=== PATIENT | female | born 1975 | race American Indian/Alaskan Native ===

== ENCOUNTER 2017-08-01 16:40 | Inpatient (IN) | payer OTHER ==
[~2017-08-01 16:40] MED LIST: ACETADOTE IV ONE; D5W IV ONE
--- NOTE | 2017-08-01 18:22 | Emergency Department Report ---
ED Psych HPI - General Chief Complaint: Overdose Stated Complaint: POSSIBLE OD Time Seen by Provider: 08/01/17 17:17 Source: EMS Mode of arrival: Stretcher Limitations: Altered Mental Status - History of Present Illness Initial Comments: This is a 42-year-old female who apparently was trying to kill herself with carbon monoxide poisoning by remaining in her car in the garage the car engine turned on and she also took an entire bottle of Flexeril. We don't know at this time, any pills were in the actual bottle. Apparently she was on the phone with a friend when she was doing all of this and EMS was activated. EMS states that she was responsive on scene. The time of this examination patient is quite obtunded. She does have spontaneous respirations though. [facility] [employer] was also contacted. We have labs pending at this time. The patient does not arouse to voice or tactile stimuli. In review of some of her past records, I do not see a previous suicide attempt. MD Complaint: other (suicidal attempt) -: Sudden, hour(s) (2) Associated Psychiatric Symptoms: suicidal ideation History of same: No - Related Data Home Medications Medication Instructions Recorded Confirmed Last Taken Albuterol Sulfate [Ventolin HFA] 2 puff IH Q4H PRN 15 05/27/15 Unknown Previous Rx's Medication Instructions Recorded Last Taken Type Acetaminophen/Codeine [Tylenol #3] 1 tab PO Q6H PRN #15 tab 05/27/15 Unknown Rx Cyclobenzaprine [Flexeril 10 MG 10 mg PO TID PRN #12 tablet 05/27/15 Unknown Rx TAB] Allergies Allergy/AdvReac Type Severity Reaction Status Date / Time No Known Allergies Allergy Unverified 05/17/14 10:06 ED Review of Systems ROS: Stated complaint: POSSIBLE OD Other details as noted in HPI Comment: Unobtainable due to pts medical conditions ED Past Medical Hx - Past Medical History Previous Medical History?: Yes Hx Asthma: Yes Additional medical history: FIBROIDS - Surgical History Past Surgical History?: Yes Additional Surgical History: TONSILLECTOMY - Social History Smoking Status: Unknown if ever smoked - Medications Home Medications: Home Medications Medication Instructions Recorded Confirmed Last Taken Type Acetaminophen/Codeine [Tylenol #3] 1 tab PO Q6H PRN #15 tab 05/27/15 Unknown Rx Albuterol Sulfate [Ventolin HFA] 2 puff IH Q4H PRN 05/27/15 05/27/15 Unknown History Cyclobenzaprine [Flexeril 10 MG 10 mg PO TID PRN #12 tablet 05/27/15 Unknown Rx TAB] ED Physical Exam - General Limitations: Altered Mental Status General appearance: lethargic - Head Head exam: Present: atraumatic, normocephalic - Eye Eye exam: Present: normal appearance, PERRL - ENT ENT exam: Present: normal exam - Neck Neck exam: Present: normal inspection - Respiratory Respiratory exam: Present: respiratory distress (mild) - Cardiovascular Cardiovascular Exam: Present: regular rate, normal rhythm, normal heart sounds - GI/Abdominal GI/Abdominal exam: Present: soft, normal bowel sounds. Absent: distended, tenderness, guarding, rebound, rigid - Extremities Exam Extremities exam: Present: normal inspection - Back Exam Back exam: Present: normal inspection - Skin Skin exam: Present: warm, dry, intact ED Course Vital Signs 08/01/17 08/01/17 16:49 18:02 Temperature 98.6 F Pulse Rate 144 H Respiratory 10 L 10 L Rate Blood Pressure 136/83 O2 Sat by Pulse 97 97 Oximetry - Reevaluation(s) Reevaluation #1: 08/01/17 18:27 Post control recommends getting an ABG as well. We will go ahead and do that. The patient will need to be admitted or transferred depending upon the lab findings. They are pending. 08/01/17 18:42 I discussed the case with Dr. Coon. At this time we will go ahead and admit the patient for Flexeril overdose. ED Medical Decision Making - Lab Data Result diagrams: 08/01/17 17:06 Critical care attestation.: If time is entered above; I have spent that time in minutes in the direct care of this critically ill patient, excluding procedure time. ED Disposition Clinical Impression: Overdose Qualifiers: Encounter type: initial encounter Injury intent: intentional self-harm Qualified Code(s): T50.902A - Poisoning by unspecified drugs, medicaments and biological substances, intentional self-harm, initial encounter Disposition: OP ADMIT IP TO THIS HOSP Is pt being admited?: Yes Does the pt Need Aspirin: No Condition: Stable Referrals: PRIMARY CARE,MD [Primary Care Provider] - 3-5 Days
[2017-08-01 18:37] LABS: Bilirubin,Urine NEG (Negative); Blood,Urine NEG (Negative); Color,Urine Yellow (Yellow); Mucus,Urine 1+ /HPF; Protein,Urine <15 mg/dL mg/dL (Negative)
[2017-08-01] MEDS ORDERED: ROCEPHIN/NS 1 GM/50 ML 1 GM/50 ML BAG IV ONE (18:43)
[2017-08-01 18:50] LABS: Amphetamine Screen,Urine PRESUMPTIVE NEGATIVE; Benzodiazepines Screen,Urine PRESUMPTIVE NEGATIVE; Cannabinoid Screen,Urine PRESUMPTIVE NEGATIVE; Cocaine Screen,Urine PRESUMPTIVE NEGATIVE; Methadone Screen,Urine PRESUMPTIVE NEGATIVE; Opiate Screen,Urine PRESUMPTIVE NEGATIVE
[2017-08-01 19:05] LABS: BUN/Creatinine Ratio TNR; Blood Urea Nitrogen TNR mg/dL (7-17); Calcium TNR mg/dL (8.4-10.2); Hemolysis Index TNR
[2017-08-01 19:12] LABS: Hematocrit 33.5 % (30.3-42.9); Hemoglobin 10.3 gm/dl (10.1-14.3); Mean Corpuscular HGB Conc 31 % (30-34); Mean Corpuscular Volume 76 fl (79-97); Platelet Count 324 K/mm3 (140-440); Red Blood Count 4.39 M/mm3 (3.65-5.03)
[2017-08-01 19:13] LABS: Mean Corpuscular Hemoglobin 23 pg (28-32); Red Cell Distribution Width 28.1 % (13.2-15.2)
[2017-08-01] MEDS ORDERED: cefTRIAXone 1 GM in NACL 0.9% 20 ML IV ONE (19:30)
[2017-08-01 19:48] LABS: Band Neutrophils # (Manual) 0.1 K/mm3; Basophils % (Manual) 0 % (0.0-1.8); Eosinophils % (Manual) 0 % (0.0-4.3); Total Cells Counted 100
[2017-08-01 19:51] LABS: Ovalocytes 1+; Poikilocytosis Few
[2017-08-01 19:52] LABS: Hypochromasia 1+; Platelet Estimate Consistent w Auto
[2017-08-01 19:57] LABS: BUN/Creatinine Ratio 13; Blood Urea Nitrogen 9 mg/dL (7-17); Calcium 8.6 mg/dL (8.4-10.2); Hemolysis Index 8
--- NOTE | 2017-08-01 20:57 | XRay Report ---
FINAL REPORT EXAM: XR ABDOMEN 1V AP HISTORY: NGT placement TECHNIQUE: Supine views of the abdomen PRIORS: None. FINDINGS: Nasogastric tube tip terminates in the proximal stomach. The side-port is in the distal esophagus and can be advanced 4 cm. The bowel gas pattern is nonspecific. No free air is identified. Soft tissues have no evidence for mass shadows or calcifications. The bony structures are intact. IMPRESSION: Satisfactory nasogastric tube placement. The side-port is in the distal esophagus and can be advanced 4 cm into the stomach. Nonspecific, nonobstructive bowel gas pattern with no acute process noted.
[2017-08-01 22:43] LABS: Alanine Aminotransferase 8 units/L (7-56)
[2017-08-01] MEDS ORDERED: ACETADOTE IV ONE ×2 (23:10→23:45)
[2017-08-01] MEDS ORDERED: D5W IV ONE ×2 (23:10→23:45)
--- NOTE | 2017-08-01 23:55 | History and Physical Report ---
History of Present Illness Date of examination: 08/01/17 Date of admission: 08/01/17 18:45 Chief complaint: CC:Overdose on Flexeril 10 mg tablets History of present illness: History of Present Illness This is a 42-year-old female who apparently was trying to kill herself with carbon monoxide poisoning by remaining in her car in the garage the car engine turned on and she also took an entire bottle of Flexeril. We don't know at this time, any pills were in the actual bottle. Apparently she was on the phone with a friend when she was doing all of this and EMS was activated. EMS states that she was responsive on scene. The time of this examination patient is quite obtunded. She does have spontaneous respirations though. [email or web address] was also contacted. We have labs pending at this time. The patient does not arouse to voice or tactile stimuli. In review of some of her past records, I do not see a previous suicide attempt. - Past Medical History Previous Medical History?: Yes Hx Asthma: Yes Additional medical history: FIBROIDS - Surgical History Past Surgical History?: Yes Additional Surgical History: TONSILLECTOMY - Social History Smoking Status: Unknown if ever smoked - Medications Home Medications: Home Medications Medication Instructions Recorded Confirmed Last Taken Type Acetaminophen/Codeine [Tylenol #3] 1 tab PO Q6H PRN #15 tab 05/27/15 Unknown Rx Albuterol Sulfate [Ventolin HFA] 2 puff IH Q4H PRN 05/27/15 05/27/15 Unknown History Cyclobenzaprine [Flexeril 10 MG 10 mg PO TID PRN #12 tablet 05/27/15 Unknown Rx TAB] Review of Systems ROS: Stated complaint: POSSIBLE OD Other details as noted in HPI Comment: Unobtainable due to pts medical conditions Medications and Allergies Allergies Allergy/AdvReac Type Severity Reaction Status Date / Time No Known Allergies Allergy Unverified 05/17/14 10:06 Home Medications Medication Instructions Recorded Confirmed Last Taken Type Acetaminophen/Codeine [Tylenol #3] 1 tab PO Q6H PRN #15 tab 05/27/15 Unknown Rx Albuterol Sulfate [Ventolin HFA] 2 puff IH Q4H PRN 15 05/27/15 Unknown History Cyclobenzaprine [Flexeril 10 MG 10 mg PO TID PRN #12 tablet 05/27/15 Unknown Rx TAB] Active Meds: Active Medications Acetylcysteine 9,525 mg/ (Dextrose) 1,047.625 mls @ 62.5 mls/hr IV ONCE ONE Stop: 08/02/17 21:01 Acetylcysteine 14,290 mg/ (Dextrose) 200 mls @ 200 mls/hr IV ONCE.ED ONE Stop: 08/02/17 00:44 Exam - Physical Exam Narrative exam: Lying in bed unresponsive - Constitutional Vitals: Temp Pulse Resp BP Pulse Ox 97.8 F 88 15 145/104 100 08/01/17 23:20 08/01/17 23:30 08/01/17 23:30 08/01/17 23:30 08/01/17 23:30 General appearance: Present: no acute distress, disheveled - EENT Eyes: Present: PERRL ENT: clear oral mucosa - Neck Neck: Present: supple, normal ROM - Respiratory Respiratory effort: normal Respiratory: bilateral: CTA - Cardiovascular Heart rate: 78 Rhythm: regular Heart Sounds: Present: S1 & S2. Absent: rub, click - Extremities Extremities: no ischemia, pulses intact, pulses symmetrical, No edema Peripheral Pulses: within normal limits - Abdominal General gastrointestinal: Present: soft, non-tender, non-distended, normal bowel sounds Female genitourinary: Present: normal - Integumentary Integumentary: Present: clear, warm, dry - Musculoskeletal Musculoskeletal: generalized weakness - Psychiatric Psychiatric: depressed, other (Decreased responsiveness) - Neurologic Neurologic: moves all extremities - Allied Health Allied health notes reviewed: nursing, case management Results - Labs CBC & Chem 7: 08/01/17 18:48 08/02/17 01:05 Labs: Laboratory Last Values WBC 5.2 K/mm3 (4.5-11.0) 08/01/17 18:48 RBC 4.39 M/mm3 (3.65-5.03) 08/01/17 18:48 Hgb 10.3 gm/dl (10.1-14.3) 08/01/17 18:48 Hct 33.5 % (30.3-42.9) 08/01/17 18:48 MCV 76 fl (79-97) L 08/01/17 18:48 MCH 23 pg (28-32) L 08/01/17 18:48 MCHC 31 % (30-34) 08/01/17 18:48 RDW 28.1 % (13.2-15.2) H 18 18:48 Plt Count 324 K/mm3 (140-440) 18 18:48 Lymph % (Auto) [employer] [id number] 18:48 [place] % (Auto) [employer] Inspector 18 18:48 Eos % (Auto) [employer] Inspector 18 18:48 Baso % (Auto) [employer] Inspector 18 18:48 Lymph # [employer] Inspector 18 18:48 [facility] # [employer] Inspector 18 18:48 Eos # [employer] Inspector 18 18:48 Baso # [employer] Inspector 08/01/17 18:48 Add Manual Diff Complete 08/01/17 18:48 Total Counted 100 18 18:48 Seg Neutrophils % [employer] Inspector 18 18:48 Seg Neuts % (Manual) 68.0 % (40.0-70.0) 08/01/17 18:48 Band Neutrophils % 1.0 % 08/01/17 18:48 Lymphocytes % (Manual) 22.0 % (13.4-35.0) 0218 18:48 Reactive Lymphs % (Man) 0 % 08/01/17 18:48 Monocytes % (Manual) 9.0 % (0.0-7.3) H 18 18:48 Eosinophils % (Manual) 0 % (0.0-4.3) 18 18:48 Basophils % (Manual) 0 % (0.0-1.8) 08/01/17 18:48 Metamyelocytes % 0 % 08/01/17 18:48 Myelocytes % 0 % 08/01/17 18:48 Promyelocytes % 0 % 08/01/17 18:48 Blast Cells % 0 % 08/01/17 18:48 Nucleated RBC % Not Reportable 08/01/17 18:48 Seg Neutrophils # [employer] Inspector 08/01/17 18:48 Seg Neutrophils # Man 3.5 K/mm3 (1.8-7.7) 18 18:48 Band Neutrophils # 0.1 K/mm3 08/01/17 18:48 Lymphocytes # (Manual) 1.1 K/mm3 (1.2-5.4) L 02/12/18 18:48 Abs React Lymphs (Man) 0.0 K/mm3 08/01/17 18:48 Monocytes # (Manual) 0.5 K/mm3 (0.0-0.8) 08/01/17 18:48 Eosinophils # (Manual) 0.0 K/mm3 (0.0-0.4) 08/01/17 18:48 Basophils # (Manual) 0.0 K/mm3 (0.0-0.1) 08/01/17 18:48 Metamyelocytes # 0.0 K/mm3 08/01/17 18:48 Myelocytes # 0.0 K/mm3 08/01/17 18:48 Promyelocytes # 0.0 K/mm3 08/01/17 18:48 Blast Cells # 0.0 K/mm3 08/01/17 18:48 WBC Morphology Not Reportable 08/01/17 18:48 Hypersegmented Neuts Not Reportable 08/01/17 18:48 Hyposegmented Neuts Not Reportable 08/01/17 18:48 Hypogranular Neuts Not Reportable 08/01/17 18:48 Smudge Cells Not Reportable 08/01/17 18:48 Toxic Granulation Not Reportable 08/01/17 18:48 Toxic Vacuolation Not Reportable 08/01/17 18:48 Dohle Bodies Not Reportable 08/01/17 18:48 Pelger-Huet Anomaly Not Reportable 08/01/17 18:48 Aron Rods Not Reportable 08/01/17 18:48 Platelet Estimate Consistent w auto 08/01/17 18:48 Clumped Platelets Not Reportable 08/01/17 18:48 Plt Clumps, EDTA Not Reportable 08/01/17 18:48 Large Platelets Not Reportable 08/01/17 18:48 Giant Platelets Not Reportable 08/01/17 18:48 Platelet Satelliting Not Reportable 08/01/17 18:48 Plt Morphology Comment Not Reportable 08/01/17 18:48 RBC Morphology Not Reportable 08/01/17 18:48 Dimorphic RBCs Not Reportable 08/01/17 18:48 Polychromasia Not Reportable 08/01/17 18:48 Hypochromasia 1+ 08/01/17 18:48 Poikilocytosis Few 08/01/17 18:48 Anisocytosis Not Reportable 08/01/17 18:48 Microcytosis 1+ 08/01/17 18:48 Macrocytosis Not Reportable 08/01/17 18:48 Spherocytes Not Reportable 08/01/17 18:48 Pappenheimer Bodies Not Reportable 08/01/17 18:48 Sickle Cells Not Reportable 08/01/17 18:48 Target Cells Not Reportable 08/01/17 18:48 Tear Drop Cells Not Reportable 08/01/17 18:48 Ovalocytes 1+ 08/01/17 18:48 Helmet Cells Not Reportable 08/01/17 18:48 Duenas-Montara Bodies Not Reportable 08/01/17 18:48 Venus Rings Not Reportable 08/01/17 18:48 Nini Cells Not Reportable 08/01/17 18:48 Bite Cells Not Reportable 08/01/17 18:48 Crenated Cell Not Reportable 08/01/17 18:48 Elliptocytes Not Reportable 08/01/17 18:48 Acanthocytes (Spur) Not Reportable 08/01/17 18:48 Rouleaux Not Reportable 08/01/17 18:48 Hemoglobin C Crystals Not Reportable 08/01/17 18:48 Schistocytes Not Reportable 08/01/17 18:48 Malaria parasites Not Reportable 08/01/17 18:48 Azael Bodies Not Reportable 08/01/17 18:48 Hem Pathologist Commnt No 08/01/17 18:48 POC ABG pH 7.378 (7.35-7.45) 08/01/17 19:19 POC ABG pCO2 46.5 (35-45) H 08/01/17 19:19 POC ABG pO2 480 (80-105) H 08/01/17 19:19 POC ABG HCO3 27.4 08/01/17 19:19 POC ABG Total CO2 29 08/01/17 19:19 POC ABG O2 Sat 100 08/01/17 19:19 POC ABG Base Excess 2 08/01/17 19:19 Carboxyhemoglobin 3.3 08/01/17 21:52 FiO2 98 % 08/01/17 19:19 Sodium 140 mmol/L (137-145) 08/01/17 19:28 Potassium 4.4 mmol/L (3.6-5.0) 08/01/17 19:28 Chloride 101.9 mmol/L (98-107) 08/01/17 19:28 Carbon Dioxide 23 mmol/L (22-30) 08/01/17 19:28 Anion Gap 20 mmol/L 08/01/17 19:28 BUN 9 mg/dL (7-17) 08/01/17 19:28 Creatinine 0.7 mg/dL (0.7-1.2) 08/01/17 19:28 Estimated GFR > 60 ml/min 08/01/17 19:28 BUN/Creatinine Ratio 13 % 08/01/17 19:28 Glucose 84 mg/dL (65-100) 08/01/17 19:28 Calcium 8.6 mg/dL (8.4-10.2) 08/01/17 19:28 AST 17 units/L (5-40) 08/01/17 21:52 ALT 8 units/L (7-56) 08/01/17 21:52 Total Creatine Kinase 174 units/L (30-135) H 08/01/17 21:52 HCG, Qual Negative (Negative) 08/01/17 Unknown Urine Color Yellow (Yellow) 08/01/17 17:50 Urine Turbidity Clear (Clear) 08/01/17 17:50 Urine pH 6.0 (5.0-7.0) 08/01/17 17:50 Ur Specific [place] 1.014 (1.003-1.030) 08/01/17 17:50 Urine Protein <15 mg/dl mg/dL (Negative) 08/01/17 17:50 Urine Glucose (UA) Neg mg/dL (Negative) 08/01/17 17:50 Urine Ketones Tr mg/dL (Negative) 08/01/17 17:50 Urine Blood Neg (Negative) 08/01/17 17:50 Urine Nitrite Neg (Negative) 08/01/17 17:50 Urine Bilirubin Neg (Negative) 08/01/17 17:50 Urine Urobilinogen 4.0 mg/dL (<2.0) 08/01/17 17:50 Ur Leukocyte Esterase Neg (Negative) 08/01/17 17:50 Urine WBC (Auto) 1.0 /HPF (0.0-6.0) 08/01/17 17:50 Urine RBC (Auto) 1.0 /HPF (0.0-6.0) 08/01/17 17:50 U Epithel Cells (Auto) < 1.0 /HPF (0-13.0) 08/01/17 17:50 Urine Mucus 1+ /HPF 08/01/17 17:50 Salicylates < 0.3 mg/dL (2.8-20.0) L 08/01/17 17:00 Urine Opiates Screen Presumptive negative 08/01/17 17:50 Urine Methadone Screen Presumptive negative 08/01/17 17:50 Acetaminophen < 15.0 ug/mL (10.0-30.0) 08/01/17 21:52 Ur Barbiturates Screen Presumptive negative 08/01/17 17:50 Ur Phencyclidine Scrn Presumptive negative 08/01/17 17:50 Ur Amphetamines Screen Presumptive negative 08/01/17 17:50 U Benzodiazepines Scrn Presumptive negative 08/01/17 17:50 Urine Cocaine Screen Presumptive negative 08/01/17 17:50 U Marijuana (THC) Screen Presumptive negative 08/01/17 17:50 Drugs of Abuse Note Disclamer 08/01/17 17:50 Plasma/Serum Alcohol < 0.01 % (0-0.07) 08/01/17 17:00 Short CBC 08/01/17 Range/Units 18:48 WBC 5.2 (4.5-11.0) K/mm3 Hgb 10.3 (10.1-14.3) gm/dl Hct 33.5 (30.3-42.9) % Plt Count 324 (140-440) K/mm3 BMP 08/01/17 08/01/17 08/01/17 17:00 17:06 19:28 Sodium TNR 140 Potassium TNR 4.4 Chloride TNR 101.9 Carbon Dioxide TNR 25 23 BUN TNR 9 Creatinine TNR 0.7 Glucose TNR 84 Calcium TNR 8.6 08/02/17 01:05 Sodium 139 Potassium 4.0 Chloride 99.7 Carbon Dioxide 26 BUN 8 Creatinine 0.6 L Glucose 102 H Calcium 8.4 Cardiac Enzymes 08/01/17 Range/Units 21:52 Total Creatine Kinase 174 H (30-135) units/L Liver Function 08/01/17 08/02/17 Range/Units 21:52 01:05 Total Bilirubin 0.20 (0.1-1.2) mg/dL AST 17 10 (5-40) units/L ALT 8 7 (7-56) units/L Alkaline Phosphatase 68 (35-129) units/L Albumin 3.7 L (3.9-5) g/dL Urine 08/01/17 Range/Units 17:50 Urine Color Yellow (Yellow) Urine pH 6.0 (5.0-7.0) Ur Specific [place] 1.014 (1.003-1.030) Urine Protein <15 mg/dl (Negative) mg/dL Urine Glucose (UA) Neg (Negative) mg/dL - Imaging and Cardiology Abdominal x-ray: report reviewed Assessment and Plan Assessment and plan: The high probability of a clinically significant, sudden or life threatening deterioration of the [Pulmonary, cadiac, renal] system(s) required my full and direct attention, intervention and personal management. The aggregate critical care time was [32] minutes. This time is in addition to time spent performing reported procedures but includes the following: [x] Data Review and interpretation [x] Patient assessment and monitoring of vital signs [x] Documentation [x] Medication orders and management Advance Directives: Yes (Full code) VTE prophylaxis?: Chemical Plan of care discussed with patient/family: Yes - Patient Problems (1) Overdose Current Visit: Yes Status: Acute Qualifiers: Encounter type: initial encounter Injury intent: intentional self-harm Qualified Code(s): T50.902A - Poisoning by unspecified drugs, medicaments and biological substances, intentional self-harm, initial encounter Plan to address problem: IV Fluids for diuresis.No specific antidote. Airway protection----Intubate if necessary No respiratory suppression (2) Asthma Current Visit: Yes Status: Inactive Plan to address problem: Proventil nebs q3/6 prn (3) Depression Current Visit: Yes Status: Chronic Qualifiers: Major depression episode severity: severe Plan to address problem: consult (4) DVT prophylaxis Current Visit: Yes Status: Acute Plan to address problem: On Lovenox
[2017-08-02] MEDS ORDERED: TYLENOL PO PRN (00:22)
[2017-08-02] MEDS ORDERED: MILK OF MAGNESIA PO PRN (00:22)
[2017-08-02] MEDS ORDERED: DULCOLAX PR PRN (00:22)
[2017-08-02] MEDS ORDERED: ZOFRAN IV PRN (00:22)
[2017-08-02 01:42] LABS: Alanine Aminotransferase 7 units/L (7-56); Albumin 3.7 g/dL (3.9-5); BUN/Creatinine Ratio 13; Blood Urea Nitrogen 8 mg/dL (7-17); Calcium 8.4 mg/dL (8.4-10.2); Hemolysis Index 0
[2017-08-02] MEDS: PEPCID IV SCH ×3 (03:40→22:27)
[2017-08-02] MEDS: D5NS 1,000 ML IV SCH (03:41)
[2017-08-02] MEDS ORDERED: D5W IV ONE (04:16)
[2017-08-02] MEDS ORDERED: ACETADOTE IV ONE (04:16)
[2017-08-02] MEDS ORDERED: D5W IV SCH (04:30)
[2017-08-02] MEDS ORDERED: ACETADOTE IV SCH (04:30)
--- NOTE | 2017-08-02 09:50 | Progress Note ---
Assessment and Plan The high probability of a clinically significant, sudden or life threatening deterioration of the [Pulmonary, cadiac, renal] system(s) required my full and direct attention, intervention and personal management. The aggregate critical care time was [32] minutes. This time is in addition to time spent performing reported procedures but includes the following: [x] Data Review and interpretation [x] Patient assessment and monitoring of vital signs [x] Documentation [x] Medication orders and management - Patient Problems (1) Overdose Current Visit: Yes Status: Acute Qualifiers: Encounter type: initial encounter Injury intent: intentional self-harm Qualified Code(s): T50.902A - Poisoning by unspecified drugs, medicaments and biological substances, intentional self-harm, initial encounter Plan to address problem: IV Fluids for diuresis.No specific antidote. Airway protection----Intubate if necessary No respiratory suppression (2) Asthma Current Visit: Yes Status: Inactive Plan to address problem: Proventil nebs q3/6 prn (3) Depression Current Visit: Yes Status: Chronic Qualifiers: Major depression episode severity: severe Plan to address problem: consult (4) DVT prophylaxis Current Visit: Yes Status: Acute Plan to address problem: On Lovenox Subjective Date of service: 08/02/17 Principal diagnosis: Flexeril overdose Interval history: More alert and oriented Objective - Exam Narrative Exam: Lying in bed unresponsive - Constitutional Vitals: Vital Signs - 12hr 08/01/17 08/01/17 08/01/17 22:00 22:30 23:00 Temperature Pulse Rate 87 85 81 Respiratory 13 13 13 Rate Blood Pressure 163/106 156/106 142/100 O2 Sat by Pulse 100 100 100 Oximetry 08/01/17 08/01/17 08/01/17 23:20 23:28 23:30 Temperature 97.8 F Pulse Rate 79 88 Respiratory 14 15 Rate Blood Pressure 143/94 145/104 O2 Sat by Pulse 100 100 Oximetry 08/01/17 08/02/17 08/02/17 23:44 00:00 00:30 Temperature Pulse Rate 77 77 81 Respiratory 14 14 14 Rate Blood Pressure 160/91 148/93 151/102 O2 Sat by Pulse 100 100 100 Oximetry 08/02/17 08/02/17 08/02/17 01:00 01:30 02:00 Temperature Pulse Rate 82 95 H 94 H Respiratory 14 20 21 Rate Blood Pressure 149/102 155/101 148/92 O2 Sat by Pulse 100 100 100 Oximetry 08/02/17 08/02/17 08/02/17 02:30 03:00 03:30 Temperature Pulse Rate 97 H 94 H 88 Respiratory 19 18 14 Rate Blood Pressure 141/99 133/98 151/94 O2 Sat by Pulse 100 100 100 Oximetry 08/02/17 08/02/17 08/02/17 04:00 04:30 05:00 Temperature Pulse Rate 85 85 80 Respiratory 15 12 14 Rate Blood Pressure 132/86 147/91 140/92 O2 Sat by Pulse 100 99 100 Oximetry 08/02/17 08/02/17 08/02/17 05:30 06:00 06:30 Temperature Pulse Rate 80 78 79 Respiratory 12 10 L 14 Rate Blood Pressure 140/92 148/90 145/90 O2 Sat by Pulse 100 100 100 Oximetry 08/02/17 08/02/17 08/02/17 07:00 07:30 08:00 Temperature Pulse Rate 84 84 82 Respiratory 12 13 13 Rate Blood Pressure 149/89 148/87 148/87 O2 Sat by Pulse 100 100 100 Oximetry 08/02/17 08:30 Temperature Pulse Rate 81 Respiratory 13 Rate Blood Pressure 155/93 O2 Sat by Pulse 100 Oximetry General appearance: Present: no acute distress, well-nourished - EENT Eyes: PERRL, EOM intact ENT: hearing intact, clear oral mucosa Ears: bilateral: normal - Neck Neck: supple, normal ROM - Respiratory Respiratory effort: normal Respiratory: bilateral: CTA - Breasts Breasts: normal - Cardiovascular Rhythm: regular Heart Sounds: Present: S1 & S2. Absent: gallop, rub Extremities: pulses intact, No edema, normal color, Full ROM - Gastrointestinal General gastrointestinal: Present: soft, non-tender, non-distended, normal bowel sounds - Genitourinary Female genitourinary: normal - Integumentary Integumentary: clear, warm, dry - Musculoskeletal Musculoskeletal: 1, strength equal bilaterally - Neurologic Neurologic: moves all extremities - Psychiatric Psychiatric: memory intact, appropriate mood/affect, intact judgment & insight - Labs CBC & Chem 7: 08/03/17 04:00 08/03/17 05:45 Labs: Abnormal lab results 08/01/17 08/01/17 08/01/17 Range/Units 17:00 18:48 19:19 MCV 76 L (79-97) fl MCH 23 L (28-32) pg RDW 28.1 H (13.2-15.2) % Monocytes % (Manual) 9.0 H (0.0-7.3) % Lymphocytes # (Manual) 1.1 L (1.2-5.4) K/mm3 POC ABG pCO2 46.5 H (35-45) POC ABG pO2 480 H (80-105) Creatinine (0.7-1.2) mg/dL Glucose (65-100) mg/dL Total Creatine Kinase (30-135) units/L Albumin (3.9-5) g/dL Salicylates < 0.3 L (2.8-20.0) mg/dL 08/01/17 08/02/17 Range/Units 21:52 01:05 MCV (79-97) fl MCH (28-32) pg RDW (13.2-15.2) % Monocytes % (Manual) (0.0-7.3) % Lymphocytes # (Manual) (1.2-5.4) K/mm3 POC ABG pCO2 (35-45) POC ABG pO2 (80-105) Creatinine 0.6 L (0.7-1.2) mg/dL Glucose 102 H (65-100) mg/dL Total Creatine Kinase 174 H (30-135) units/L Albumin 3.7 L (3.9-5) g/dL Salicylates (2.8-20.0) mg/dL
--- NOTE | 2017-08-02 14:58 | Progress Note ---
Assessment and Plan The high probability of a clinically significant, sudden or life threatening deterioration of the [Pulmonary, cadiac, renal] system(s) required my full and direct attention, intervention and personal management. The aggregate critical care time was [32] minutes. This time is in addition to time spent performing reported procedures but includes the following: [x] Data Review and interpretation [x] Patient assessment and monitoring of vital signs [x] Documentation [x] Medication orders and management - Patient Problems (1) Overdose Current Visit: Yes Status: Acute Qualifiers: Encounter type: initial encounter Injury intent: intentional self-harm Qualified Code(s): T50.902A - Poisoning by unspecified drugs, medicaments and biological substances, intentional self-harm, initial encounter Plan to address problem: IV Fluids for diuresis.No specific antidote. Airway protection----Intubate if necessary No respiratory suppression (2) Asthma Current Visit: Yes Status: Inactive Plan to address problem: Proventil nebs q3/6 prn (3) Depression Current Visit: Yes Status: Chronic Qualifiers: Major depression episode severity: severe Plan to address problem: MH consult (4) DVT prophylaxis Current Visit: Yes Status: Acute Plan to address problem: On Lovenox Subjective Date of service: 08/02/17 Objective - Exam Narrative Exam: Lying in bed unresponsive - Constitutional Vitals: Vital Signs - 12hr 08/02/17 08/02/17 08/02/17 03:00 03:30 04:00 Pulse Rate 94 H 88 85 Respiratory 18 14 15 Rate Blood Pressure 133/98 151/94 132/86 O2 Sat by Pulse 100 100 100 Oximetry 08/02/17 08/02/17 08/02/17 04:30 05:00 05:30 Pulse Rate 85 80 80 Respiratory 12 14 12 Rate Blood Pressure 147/91 140/92 140/92 O2 Sat by Pulse 99 100 100 Oximetry 08/02/17 08/02/17 08/02/17 06:00 06:30 07:00 Pulse Rate 78 79 84 Respiratory 10 L 14 12 Rate Blood Pressure 148/90 145/90 149/89 O2 Sat by Pulse 100 100 100 Oximetry 08/02/17 08/02/17 08/02/17 07:30 08:00 08:30 Pulse Rate 84 82 81 Respiratory 13 13 13 Rate Blood Pressure 148/87 148/87 155/93 O2 Sat by Pulse 100 100 100 Oximetry 08/02/17 08/02/17 08/02/17 09:00 09:30 10:00 Pulse Rate 80 85 93 H Respiratory 13 13 13 Rate Blood Pressure 139/89 142/88 142/88 O2 Sat by Pulse 100 100 100 Oximetry 08/02/17 08/02/17 08/02/17 10:30 11:00 11:30 Pulse Rate 82 83 80 Respiratory 15 16 16 Rate Blood Pressure 167/92 157/95 161/90 O2 Sat by Pulse 100 100 100 Oximetry 08/02/17 08/02/17 08/02/17 12:00 12:30 13:00 Pulse Rate 82 86 84 Respiratory 14 13 13 Rate Blood Pressure 162/101 162/101 137/90 O2 Sat by Pulse 99 100 99 Oximetry 08/02/17 08/02/17 13:30 14:00 Pulse Rate 75 84 Respiratory 16 9 L Rate Blood Pressure 137/90 138/84 O2 Sat by Pulse 87 99 Oximetry General appearance: Present: no acute distress, well-nourished - EENT Eyes: PERRL, EOM intact ENT: hearing intact, clear oral mucosa Ears: bilateral: normal - Neck Neck: supple, normal ROM - Respiratory Respiratory effort: normal Respiratory: bilateral: CTA - Breasts Breasts: normal - Cardiovascular Rhythm: regular Heart Sounds: Present: S1 & S2. Absent: gallop, rub Extremities: pulses intact, No edema, normal color, Full ROM - Gastrointestinal General gastrointestinal: Present: soft, non-tender, non-distended, normal bowel sounds - Genitourinary Female genitourinary: normal - Integumentary Integumentary: clear, warm, dry - Musculoskeletal Musculoskeletal: 1, strength equal bilaterally - Neurologic Neurologic: moves all extremities - Psychiatric Psychiatric: memory intact, appropriate mood/affect, intact judgment & insight - Labs CBC & Chem 7: 08/01/17 18:48 08/02/17 01:05 Labs: Abnormal lab results 08/01/17 08/01/17 08/01/17 Range/Units 17:00 18:48 19:19 MCV 76 L (79-97) fl MCH 23 L (28-32) pg RDW 28.1 H (13.2-15.2) % Monocytes % (Manual) 9.0 H (0.0-7.3) % Lymphocytes # (Manual) 1.1 L (1.2-5.4) K/mm3 POC ABG pCO2 46.5 H (35-45) POC ABG pO2 480 H (80-105) Creatinine (0.7-1.2) mg/dL Glucose (65-100) mg/dL Total Creatine Kinase (30-135) units/L Albumin (3.9-5) g/dL Salicylates < 0.3 L (2.8-20.0) mg/dL 08/01/17 08/02/17 Range/Units 21:52 01:05 MCV (79-97) fl MCH (28-32) pg RDW (13.2-15.2) % Monocytes % (Manual) (0.0-7.3) % Lymphocytes # (Manual) (1.2-5.4) K/mm3 POC ABG pCO2 (35-45) POC ABG pO2 (80-105) Creatinine 0.6 L (0.7-1.2) mg/dL Glucose 102 H (65-100) mg/dL Total Creatine Kinase 174 H (30-135) units/L Albumin 3.7 L (3.9-5) g/dL Salicylates (2.8-20.0) mg/dL
[2017-08-02 18:55] LABS: INR 1.06 (0.87-1.13)
[2017-08-02 19:07] LABS: Alanine Aminotransferase 7 units/L (7-56); Albumin 3.6 g/dL (3.9-5); Bilirubin,Direct < 0.2 mg/dL (0-0.2)
[2017-08-03 05:59] LABS: Hematocrit 33.8 % (30.3-42.9); Hemoglobin 10.4 gm/dl (10.1-14.3); Mean Corpuscular HGB Conc 31 % (30-34); Mean Corpuscular Volume 76 fl (79-97); Platelet Count 301 K/mm3 (140-440); Red Blood Count 4.47 M/mm3 (3.65-5.03)
[2017-08-03 06:18] LABS: BUN/Creatinine Ratio 12; Blood Urea Nitrogen 6 mg/dL (7-17); Calcium 8.3 mg/dL (8.4-10.2); Hemolysis Index 3
[2017-08-03 06:36] LABS: Mean Corpuscular Hemoglobin 23 pg (28-32)
[2017-08-03 06:37] LABS: Basophils % (Auto) 0.5 % (0.0-1.8); Eosinophils # (Auto) 0.1 K/mm3 (0.0-0.4); Eosinophils % (Auto) 4.2 % (0.0-4.3); Lymphocytes % (Auto) 27.6 % (13.4-35.0); Monocytes # (Auto) 0.3 K/mm3 (0.0-0.8); Monocytes % (Auto) 8.8 % (0.0-7.3); Red Cell Distribution Width 27.6 % (13.2-15.2)
[2017-08-03] MEDS: D5NS 1,000 ML IV SCH (13:04)
[2017-08-03] MEDS: PEPCID IV SCH ×2 (13:05→21:43)
--- NOTE | 2017-08-03 14:21 | Consultation ---
History of Present Illness - Reason for Consult Consult date: 08/03/17 Reason for consult: SI Requesting physician: VENITA AMOS - Chief Complaint Chief complaint: "I attempted to kill myself" - History of Present Psychiatric Illness This is a 42 y/o female who attempted to kill herself with carbon monoxide poisoning by remaining in her car in the garage with the engine turned on, she also admits to taking the entire bottle of Flexeril. Denies ilicit drug usage, denies SI/HI and AVH on assessment. States that she is "tired of people using me " and "i wanted to end it." Denies any previous suicide attempt or inpatient hospitalization. Reports that she is not sleeping well at night and she is losing interest in activities. She lives alone near the hospital and has a 19 y/o daughter. She states that she does not want her family to be involved in her care. Medications and Allergies Allergies Allergy/AdvReac Type Severity Reaction Status Date / Time No Known Allergies Allergy Unverified 05/17/14 10:06 Home Medications Medication Instructions Recorded Confirmed Last Taken Type Cyclobenzaprine [Flexeril 10 MG 10 mg PO QDAY PRN 08/02/17 08/02/17 Unknown History TAB] Ergocalciferol [Vitamin D2] 1 cap PO QWEEK 08/02/17 08/02/17 Unknown History Ferrous Sulfate [Iron] 325 mg PO BID 08/02/17 08/02/17 Unknown History Ibuprofen [Motrin] 800 mg PO TID PRN 08/02/17 08/02/17 Unknown History Active Meds: Active Medications Bisacodyl (Dulcolax) 10 mg ME QDAY PRN PRN Reason: Constipation unrelieved by MOM Famotidine (Pepcid) 20 mg IV BID [facility] Last Admin: 08/03/17 13:05 Dose: 20 mg Dextrose/Sodium Chloride (D5ns) 1,000 mls @ 125 mls/hr IV DIRECT [facility] Last Admin: 08/03/17 13:04 Dose: 125 mls/hr Magnesium Hydroxide (Milk Of Magnesia) 30 ml PO Q4H PRN PRN Reason: Constipation Ondansetron HCl (Zofran) 4 mg IV Q8H PRN PRN Reason: N/V unrelieved by Reglan Past psychiatric history - past Psychiatric treatment and history Psych: Depression Mental Status Exam - Vital signs Last Vital Signs Temp 98.3 F 08/03/17 12:13 Pulse 106 H 08/03/17 12:13 Resp 20 08/03/17 12:13 BP 135/91 08/03/17 12:13 Pulse Ox 99 08/03/17 12:13 - Exam Orientation: time, place, person Affect: flat Mood: sad Thought Process: Intact Perceptions: none Speech: normal rate and pattern Concentration: focused Motor activity: normal Level of consciousness: alert Memory: Intact Interaction: apathetic Results Result Diagrams: 08/03/17 04:00 08/03/17 05:45 Abnormal lab results 08/02/17 08/03/17 08/03/17 Range/Units 18:31 04:00 05:45 WBC 3.6 L (4.5-11.0) K/mm3 MCV 76 L (79-97) fl MCH 23 L (28-32) pg RDW 27.6 H (13.2-15.2) % [place] % (Auto) 8.8 H (0.0-7.3) % Lymph # 1.0 L (1.2-5.4) K/mm3 BUN 6 L (7-17) mg/dL Creatinine 0.5 L (0.7-1.2) mg/dL Calcium 8.3 L (8.4-10.2) mg/dL Albumin 3.6 L (3.9-5) g/dL All other labs normal. Assessment and Plan Assessment and plan: Impression: MDD Recommendation: will follow up with patient in 24 hours, recommend inpatient psychiatric treatment
--- NOTE | 2017-08-03 16:41 | Progress Note ---
Assessment and Plan Assessment and plan: Suicidal attempt with flexril overdose and chronic monoxide poisoning - Patient was intubated yesterday and currently extubated no issues - Patient is admitted to the floor on 101 Major depression disorder - Psych consulted and said will reevaluate in 24 hrs DVT prophylaxis - Lovenox Disposition - Patient is cleared medically for discharge and discharge is per psychiatry History Interval history: Patient was seen and evaluated this morning, patient denied suicidal ideation at this time, but she said she feel depressed. Hospitalist Physical - Physical exam Narrative exam: Not in cardiopulmonary distress. The patient appeared well nourished and normally developed. Vital signs as documented. Head exam is unremarkable. No scleral icterus . Neck is without jugular venous distension, thyromegaly, or carotid bruits. Lungs are clear to auscultation. Cardiac exam reveals regular rate and Rhythm. First and second heart sounds normal. No murmurs, rubs or gallops. Abdominal exam reveals normal bowel sounds, no masses, no organomegaly and no aortic enlargement. Extremities are nonedematous and both femoral and pedal pulses are normal. INDUSTRIAL SOCIOLOGIST: Alert and oriented 3. No focal weakness. - Constitutional Vitals: Temp Pulse Resp BP Pulse Ox 98.3 F 106 H 20 135/91 99 08/03/17 12:13 08/03/17 12:13 08/03/17 12:13 08/03/17 12:13 08/03/17 12:13 General appearance: Present: no acute distress, well-nourished Results - Labs CBC & Chem 7: 08/03/17 04:00 08/03/17 05:45 Labs: Laboratory Last Values WBC 3.6 K/mm3 (4.5-11.0) L 08/03/17 04:00 RBC 4.47 M/mm3 (3.65-5.03) 08/03/17 04:00 Hgb 10.4 gm/dl (10.1-14.3) 08/03/17 04:00 Hct 33.8 % (30.3-42.9) 08/03/17 04:00 MCV 76 fl (79-97) L 08/03/17 04:00 MCH 23 pg (28-32) L 08/03/17 04:00 MCHC 31 % (30-34) 08/03/17 04:00 RDW 27.6 % (13.2-15.2) H 08/03/17 04:00 Plt Count 301 K/mm3 (140-440) 08/03/17 04:00 Lymph % (Auto) 27.6 % (13.4-35.0) 08/03/17 04:00 [place] % (Auto) 8.8 % (0.0-7.3) H 08/03/17 04:00 Eos % (Auto) 4.2 % (0.0-4.3) 08/03/17 04:00 Baso % (Auto) 0.5 % (0.0-1.8) 08/03/17 04:00 Lymph # 1.0 K/mm3 (1.2-5.4) L 08/03/17 04:00 [place] # 0.3 K/mm3 (0.0-0.8) 08/03/17 04:00 Eos # 0.1 K/mm3 (0.0-0.4) 08/03/17 04:00 Baso # 0.0 K/mm3 (0.0-0.1) 08/03/17 04:00 Add Manual Diff Complete 08/01/17 18:48 Total Counted 100 08/01/17 18:48 Seg Neutrophils % 58.9 % (40.0-70.0) 08/03/17 04:00 Seg Neuts % (Manual) 68.0 % (40.0-70.0) 08/01/17 18:48 Band Neutrophils % 1.0 % 08/01/17 18:48 Lymphocytes % (Manual) 22.0 % (13.4-35.0) 08/01/17 18:48 Reactive Lymphs % (Man) 0 % 08/01/17 18:48 Monocytes % (Manual) 9.0 % (0.0-7.3) H 08/01/17 18:48 Eosinophils % (Manual) 0 % (0.0-4.3) 08/01/17 18:48 Basophils % (Manual) 0 % (0.0-1.8) 08/01/17 18:48 Metamyelocytes % 0 % 08/01/17 18:48 Myelocytes % 0 % 08/01/17 18:48 Promyelocytes % 0 % 08/01/17 18:48 Blast Cells % 0 % 08/01/17 18:48 Nucleated RBC % Not Reportable 08/01/17 18:48 Seg Neutrophils # 2.1 K/mm3 (1.8-7.7) 08/03/17 04:00 Seg Neutrophils # Man 3.5 K/mm3 (1.8-7.7) 08/01/17 18:48 Band Neutrophils # 0.1 K/mm3 02 18:48 Lymphocytes # (Manual) 1.1 K/mm3 (1.2-5.4) L 02 18:48 Abs React Lymphs (Man) 0.0 K/mm3 08/01/17 18:48 Monocytes # (Manual) 0.5 K/mm3 (0.0-0.8) 08/01/17 18:48 Eosinophils # (Manual) 0.0 K/mm3 (0.0-0.4) 08/01/17 18:48 Basophils # (Manual) 0.0 K/mm3 (0.0-0.1) 08/01/17 18:48 Metamyelocytes # 0.0 K/mm3 08/01/17 18:48 Myelocytes # 0.0 K/mm3 08/01/17 18:48 Promyelocytes # 0.0 K/mm3 08/01/17 18:48 Blast Cells # 0.0 K/mm3 08/01/17 18:48 WBC Morphology Not Reportable 08/01/17 18:48 Hypersegmented Neuts Not Reportable 08/01/17 18:48 Hyposegmented Neuts Not Reportable 08/01/17 18:48 Hypogranular Neuts Not Reportable 08/01/17 18:48 Smudge Cells Not Reportable 08/01/17 18:48 Toxic Granulation Not Reportable 08/01/17 18:48 Toxic Vacuolation Not Reportable 08/01/17 18:48 Dohle Bodies Not Reportable 08/01/17 18:48 Pelger-Huet Anomaly Not Reportable 08/01/17 18:48 Aron Rods Not Reportable 02 18:48 Platelet Estimate Consistent w auto 08/01/17 18:48 Clumped Platelets Not Reportable 02 18:48 Plt Clumps, EDTA Not Reportable 08/01/17 18:48 Large Platelets Not Reportable 08/01/17 18:48 Giant Platelets Not Reportable 08/01/17 18:48 Platelet Satelliting Not Reportable 08/01/17 18:48 Plt Morphology Comment Not Reportable 08/01/17 18:48 RBC Morphology Not Reportable 08/01/17 18:48 Dimorphic RBCs Not Reportable 08/01/17 18:48 Polychromasia Not Reportable 08/01/17 18:48 Hypochromasia 1+ 08/01/17 18:48 Poikilocytosis Few 08/01/17 18:48 Anisocytosis Not Reportable 08/01/17 18:48 Microcytosis 1+ 08/01/17 18:48 Macrocytosis Not Reportable 08/01/17 18:48 Spherocytes Not Reportable 08/01/17 18:48 Pappenheimer Bodies Not Reportable 08/01/17 18:48 Sickle Cells Not Reportable 08/01/17 18:48 Target Cells Not Reportable 08/01/17 18:48 Tear Drop Cells Not Reportable 08/01/17 18:48 Ovalocytes 1+ 08/01/17 18:48 Helmet Cells Not Reportable 08/01/17 18:48 Duenas-Burchard Bodies Not Reportable 08/01/17 18:48 [place] Rings Not Reportable 08/01/17 18:48 Nini Cells Not Reportable 08/01/17 18:48 Bite Cells Not Reportable 08/01/17 18:48 Crenated Cell Not Reportable 08/01/17 18:48 Elliptocytes Not Reportable 08/01/17 18:48 Acanthocytes (Spur) Not Reportable 08/01/17 18:48 Rouleaux Not Reportable 08/01/17 18:48 Hemoglobin C Crystals Not Reportable 08/01/17 18:48 Schistocytes Not Reportable 08/01/17 18:48 Malaria parasites Not Reportable 08/01/17 18:48 Azael Bodies Not Reportable 08/01/17 18:48 Hem Pathologist Commnt No 08/01/17 18:48 PT 14.4 Sec. (12.2-14.9) 08/02/17 18:31 INR 1.06 (0.87-1.13) 08/02/17 18:31 APTT 34.3 Sec. (24.2-36.6) 08/02/17 02:50 POC ABG pH 7.378 (7.35-7.45) 08/01/17 19:19 POC ABG pCO2 46.5 (35-45) H 08/01/17 19:19 POC ABG pO2 480 (80-105) H 08/01/17 19:19 POC ABG HCO3 27.4 08/01/17 19:19 POC ABG Total CO2 29 08/01/17 19:19 POC ABG O2 Sat 100 08/01/17 19:19 POC ABG Base Excess 2 08/01/17 19:19 Carboxyhemoglobin 3.3 08/01/17 21:52 FiO2 98 % 08/01/17 19:19 Sodium 140 mmol/L (137-145) 08/03/17 05:45 Potassium 3.7 mmol/L (3.6-5.0) 08/03/17 05:45 Chloride 105.3 mmol/L (98-107) 08/03/17 05:45 Carbon Dioxide 22 mmol/L (22-30) 08/03/17 05:45 Anion Gap 16 mmol/L 08/03/17 05:45 BUN 6 mg/dL (7-17) L 08/03/17 05:45 Creatinine 0.5 mg/dL (0.7-1.2) L 08/03/17 05:45 Estimated GFR > 60 ml/min 08/03/17 05:45 BUN/Creatinine Ratio 12 % 08/03/17 05:45 Glucose 84 mg/dL (65-100) 08/03/17 05:45 Calcium 8.3 mg/dL (8.4-10.2) L 08/03/17 05:45 Total Bilirubin 0.80 mg/dL (0.1-1.2) 08/02/17 18:31 Direct Bilirubin < 0.2 mg/dL (0-0.2) 08/02/17 18:31 Indirect Bilirubin 0.6 mg/dL 08/02/17 18:31 AST 9 units/L (5-40) 08/02/17 18:31 ALT 7 units/L (7-56) 08/02/17 18:31 Alkaline Phosphatase 61 units/L (35-129) 08/02/17 18:31 Total Creatine Kinase 174 units/L (30-135) H 08/01/17 21:52 Total Protein 6.3 g/dL (6.3-8.2) 08/02/17 18:31 Albumin 3.6 g/dL (3.9-5) L 08/02/17 18:31 Albumin/Globulin Ratio 1.3 % 08/02/17 18:31 HCG, Qual Negative (Negative) 08/01/17 Unknown Urine Color Yellow (Yellow) 08/01/17 17:50 Urine Turbidity Clear (Clear) 08/01/17 17:50 Urine pH 6.0 (5.0-7.0) 08/01/17 17:50 Ur Specific [place] 1.014 (1.003-1.030) 08/01/17 17:50 Urine Protein <15 mg/dl mg/dL (Negative) 08/01/17 17:50 Urine Glucose (UA) Neg mg/dL (Negative) 08/01/17 17:50 Urine Ketones Tr mg/dL (Negative) 08/01/17 17:50 Urine Blood Neg (Negative) 08/01/17 17:50 Urine Nitrite Neg (Negative) 08/01/17 17:50 Urine Bilirubin Neg (Negative) 08/01/17 17:50 Urine Urobilinogen 4.0 mg/dL (<2.0) 08/01/17 17:50 Ur Leukocyte Esterase Neg (Negative) 08/01/17 17:50 Urine WBC (Auto) 1.0 /HPF (0.0-6.0) 08/01/17 17:50 Urine RBC (Auto) 1.0 /HPF (0.0-6.0) 08/01/17 17:50 U Epithel Cells (Auto) < 1.0 /HPF (0-13.0) 08/01/17 17:50 Urine Mucus 1+ /HPF 08/01/17 17:50 Salicylates < 0.3 mg/dL (2.8-20.0) L 08/01/17 17:00 Urine Opiates Screen Presumptive negative 08/01/17 17:50 Urine Methadone Screen Presumptive negative 08/01/17 17:50 Acetaminophen < 15.0 ug/mL (10.0-30.0) 08/02/17 18:31 Ur Barbiturates Screen Presumptive negative 08/01/17 17:50 Ur Phencyclidine Scrn Presumptive negative 08/01/17 17:50 Ur Amphetamines Screen Presumptive negative 08/01/17 17:50 U Benzodiazepines Scrn Presumptive negative 08/01/17 17:50 Urine Cocaine Screen Presumptive negative 08/01/17 17:50 U Marijuana (THC) Screen Presumptive negative 08/01/17 17:50 Drugs of Abuse Note Disclamer 08/01/17 17:50 Plasma/Serum Alcohol < 0.01 % (0-0.07) 08/01/17 17:00
[2017-08-03] MEDS: LOVENOX SUB-Q SCH (21:42)
[2017-08-04] MEDS: D5NS 1,000 ML IV SCH (06:39)
[2017-08-04 06:48] LABS: Alanine Aminotransferase 5 units/L (7-56); Albumin 3.2 g/dL (3.9-5); BUN/Creatinine Ratio 20; Blood Urea Nitrogen 12 mg/dL (7-17); Calcium 8.2 mg/dL (8.4-10.2); Hemolysis Index 1
[2017-08-04] MEDS: PEPCID IV SCH (09:49)
--- NOTE | 2017-08-04 10:37 | Progress Note ---
Subjective - Reason for Consult Consult date: 08/04/17 Reason for consult: Psychiatry Follow-up - Chief Complaint Chief complaint: "I didn't want to wake up" This is a 42-year-old female who apparently was trying to kill herself with by carbon monoxide poisoning and taking a entire bottle of Flexeril pills. Today the patient is calm and cooperative during the assessment. She stated that she didn't want to wake up because she been feeling "depressed" about the deaths of her mother and brother. She stated having suicidal thoughts in the past, but never acted on them until yesterday. She stated that she didn't want to wake up when she took the Flexeril pills and the attempted poisoning. She stated that she wanted to join her family (mother/brother) who . She stated that she was adopted at the age of 2 along with her biological brother. She stated that she does not have much family now and felt "alone and sad" recently. She denies prior manic episodes. She denies SI/HI's and AVH's. She denies a poor appetite and erratic sleep. She stated that she prefer to talk with a therapist than take medications. Mental Status Exam - Vital signs Last Vital Signs Temp 98.5 F 08/04/17 08:03 Pulse 85 08/04/17 08:03 Resp 20 08/04/17 08:03 BP 123/85 08/04/17 08:03 Pulse Ox 100 08/04/17 08:03 - Exam Narrative exam: MSE: Appearance: calm, cooperative Behavior: regular eye contact Speech: regular rate and tone Mood: "okay" withdrawn Affect: congruent to mood Thought Process: logical Thought Content: denies HI's and AVH's Motor Activity: lying in bed Cognition: A/O x3 Insight: fair Judgment: fair Assessment and Plan Impression: MD, Severe Type. Today the patient is calm and cooperative during the assessment. Patient intentionally tried to kill herself by CO poisoning and taking a entire bottle of Flexeril pills. DDx: R/O Bipolar DO Recommendation/Plan: Continue 1013 with placement to inpatient psy services. Risk/Benefits of antidepressants discussed with patient. She prefer to talk with a therapist for treatment.
--- NOTE | 2017-08-04 16:20 | Progress Note ---
Assessment and Plan Assessment and plan: Suicidal attempt with flexril overdose and chronic monoxide poisoning - Patient was intubated yesterday and currently extubated no issues - Patient is admitted to the floor on 1012 Major depression disorder - Psych consulted and said we'll transfer her to inpatient psych facility DVT prophylaxis - Lovenox Disposition - Patient is cleared medically for discharge and discharge is per psychiatry History Interval history: Patient was seen and evaluated this morning, patient denied suicidal ideation at this time, but she said she feel depressed. Hospitalist Physical - Physical exam Narrative exam: Not in cardiopulmonary distress. The patient appeared well nourished and normally developed. Vital signs as documented. Head exam is unremarkable. No scleral icterus . Neck is without jugular venous distension, thyromegaly, or carotid bruits. Lungs are clear to auscultation. Cardiac exam reveals regular rate and Rhythm. First and second heart sounds normal. No murmurs, rubs or gallops. Abdominal exam reveals normal bowel sounds, no masses, no organomegaly and no aortic enlargement. Extremities are nonedematous and both femoral and pedal pulses are normal. NAPPER TENDER: Alert and oriented 3. No focal weakness. - Constitutional Vitals: Temp Pulse Resp BP Pulse Ox 98.5 F 85 20 123/85 100 08/04/17 08:03 08/04/17 08:03 08/04/17 08:03 08/04/17 08:03 08/04/17 08:03 General appearance: Present: no acute distress, well-nourished Results - Labs CBC & Chem 7: 08/03/17 04:00 08/04/17 05:57 Labs: Laboratory Last Values WBC 3.6 K/mm3 (4.5-11.0) L 08/03/17 04:00 RBC 4.47 M/mm3 (3.65-5.03) 08/03/17 04:00 Hgb 10.4 gm/dl (10.1-14.3) 08/03/17 04:00 Hct 33.8 % (30.3-42.9) 08/03/17 04:00 MCV 76 fl (79-97) L 08/03/17 04:00 MCH 23 pg (28-32) L 08/03/17 04:00 MCHC 31 % (30-34) 08/03/17 04:00 RDW 27.6 % (13.2-15.2) H 08/03/17 04:00 Plt Count 301 K/mm3 (140-440) 08/03/17 04:00 Lymph % (Auto) 27.6 % (13.4-35.0) 08/03/17 04:00 [place] % (Auto) 8.8 % (0.0-7.3) H 08/03/17 04:00 Eos % (Auto) 4.2 % (0.0-4.3) 08/03/17 04:00 Baso % (Auto) 0.5 % (0.0-1.8) 08/03/17 04:00 Lymph # 1.0 K/mm3 (1.2-5.4) L 08/03/17 04:00 [place] # 0.3 K/mm3 (0.0-0.8) 08/03/17 04:00 Eos # 0.1 K/mm3 (0.0-0.4) 08/03/17 04:00 Baso # 0.0 K/mm3 (0.0-0.1) 08/03/17 04:00 Add Manual Diff Complete 08/01/17 18:48 Total Counted 100 08/01/17 18:48 Seg Neutrophils % 58.9 % (40.0-70.0) 08/03/17 04:00 Seg Neuts % (Manual) 68.0 % (40.0-70.0) 08/01/17 18:48 Band Neutrophils % 1.0 % 08/01/17 18:48 Lymphocytes % (Manual) 22.0 % (13.4-35.0) 08/01/17 18:48 Reactive Lymphs % (Man) 0 % 08/01/17 18:48 Monocytes % (Manual) 9.0 % (0.0-7.3) H 08/01/17 18:48 Eosinophils % (Manual) 0 % (0.0-4.3) 08/01/17 18:48 Basophils % (Manual) 0 % (0.0-1.8) 08/01/17 18:48 Metamyelocytes % 0 % 08/01/17 18:48 Myelocytes % 0 % 08/01/17 18:48 Promyelocytes % 0 % 08/01/17 18:48 Blast Cells % 0 % 08/01/17 18:48 Nucleated RBC % Not Reportable 08/01/17 18:48 Seg Neutrophils # 2.1 K/mm3 (1.8-7.7) 08/03/17 04:00 Seg Neutrophils # Man 3.5 K/mm3 (1.8-7.7) 08/01/17 18:48 Band Neutrophils # 0.1 K/mm3 08/01/17 18:48 Lymphocytes # (Manual) 1.1 K/mm3 (1.2-5.4) L 02 18:48 Abs React Lymphs (Man) 0.0 K/mm3 08/01/17 18:48 Monocytes # (Manual) 0.5 K/mm3 (0.0-0.8) 08/01/17 18:48 Eosinophils # (Manual) 0.0 K/mm3 (0.0-0.4) 08/01/17 18:48 Basophils # (Manual) 0.0 K/mm3 (0.0-0.1) 08/01/17 18:48 Metamyelocytes # 0.0 K/mm3 08/01/17 18:48 Myelocytes # 0.0 K/mm3 08/01/17 18:48 Promyelocytes # 0.0 K/mm3 08/01/17 18:48 Blast Cells # 0.0 K/mm3 08/01/17 18:48 WBC Morphology Not Reportable 08/01/17 18:48 Hypersegmented Neuts Not Reportable 08/01/17 18:48 Hyposegmented Neuts Not Reportable 08/01/17 18:48 Hypogranular Neuts Not Reportable 08/01/17 18:48 Smudge Cells Not Reportable 08/01/17 18:48 Toxic Granulation Not Reportable 08/01/17 18:48 Toxic Vacuolation Not Reportable 08/01/17 18:48 Dohle Bodies Not Reportable 08/01/17 18:48 Pelger-Huet Anomaly Not Reportable 08/01/17 18:48 Aron Rods Not Reportable 02 18:48 Platelet Estimate Consistent w auto 02 18:48 Clumped Platelets Not Reportable 08/01/17 18:48 Plt Clumps, EDTA Not Reportable 08/01/17 18:48 Large Platelets Not Reportable 08/01/17 18:48 Giant Platelets Not Reportable 08/01/17 18:48 Platelet Satelliting Not Reportable 08/01/17 18:48 Plt Morphology Comment Not Reportable 08/01/17 18:48 RBC Morphology Not Reportable 08/01/17 18:48 Dimorphic RBCs Not Reportable 08/01/17 18:48 Polychromasia Not Reportable 08/01/17 18:48 Hypochromasia 1+ 08/01/17 18:48 Poikilocytosis Few 08/01/17 18:48 Anisocytosis Not Reportable 08/01/17 18:48 Microcytosis 1+ 08/01/17 18:48 Macrocytosis Not Reportable 08/01/17 18:48 Spherocytes Not Reportable 08/01/17 18:48 Pappenheimer Bodies Not Reportable 08/01/17 18:48 Sickle Cells Not Reportable 08/01/17 18:48 Target Cells Not Reportable 08/01/17 18:48 Tear Drop Cells Not Reportable 08/01/17 18:48 Ovalocytes 1+ 08/01/17 18:48 Helmet Cells Not Reportable 08/01/17 18:48 [place] Bodies Not Reportable 08/01/17 18:48 [place] Rings Not Reportable 08/01/17 18:48 Nini Cells Not Reportable 08/01/17 18:48 Bite Cells Not Reportable 08/01/17 18:48 Crenated Cell Not Reportable 08/01/17 18:48 Elliptocytes Not Reportable 08/01/17 18:48 Acanthocytes (Spur) Not Reportable 08/01/17 18:48 Rouleaux Not Reportable 08/01/17 18:48 Hemoglobin C Crystals Not Reportable 08/01/17 18:48 Schistocytes Not Reportable 08/01/17 18:48 Malaria parasites Not Reportable 08/01/17 18:48 Azael Bodies Not Reportable 08/01/17 18:48 Hem Pathologist Commnt No 08/01/17 18:48 PT 14.4 Sec. (12.2-14.9) 08/02/17 18:31 INR 1.06 (0.87-1.13) 08/02/17 18:31 APTT 34.3 Sec. (24.2-36.6) 08/02/17 02:50 POC ABG pH 7.378 (7.35-7.45) 08/01/17 19:19 POC ABG pCO2 46.5 (35-45) H 08/01/17 19:19 POC ABG pO2 480 (80-105) H 08/01/17 19:19 POC ABG HCO3 27.4 08/01/17 19:19 POC ABG Total CO2 29 08/01/17 19:19 POC ABG O2 Sat 100 08/01/17 19:19 POC ABG Base Excess 2 08/01/17 19:19 Carboxyhemoglobin 3.3 08/01/17 21:52 FiO2 98 % 08/01/17 19:19 Sodium 139 mmol/L (137-145) 08/04/17 05:57 Potassium 4.0 mmol/L (3.6-5.0) 08/04/17 05:57 Chloride 106.0 mmol/L (98-107) 08/04/17 05:57 Carbon Dioxide 23 mmol/L (22-30) 08/04/17 05:57 Anion Gap 14 mmol/L 08/04/17 05:57 BUN 12 mg/dL (7-17) 08/04/17 05:57 Creatinine 0.6 mg/dL (0.7-1.2) L 08/04/17 05:57 Estimated GFR > 60 ml/min 08/04/17 05:57 BUN/Creatinine Ratio 20 % 08/04/17 05:57 Glucose 79 mg/dL (65-100) 08/04/17 05:57 Calcium 8.2 mg/dL (8.4-10.2) L 08/04/17 05:57 Total Bilirubin 0.30 mg/dL (0.1-1.2) 08/04/17 05:57 Direct Bilirubin < 0.2 mg/dL (0-0.2) 08/02/17 18:31 Indirect Bilirubin 0.6 mg/dL 08/02/17 18:31 AST 8 units/L (5-40) 08/04/17 05:57 ALT 5 units/L (7-56) L 08/04/17 05:57 Alkaline Phosphatase 56 units/L (35-129) 08/04/17 05:57 Total Creatine Kinase 174 units/L (30-135) H 02/12/18 21:52 Total Protein 6.2 g/dL (6.3-8.2) L 08/04/17 05:57 Albumin 3.2 g/dL (3.9-5) L 08/04/17 05:57 Albumin/Globulin Ratio 1.1 % 08/04/17 05:57 HCG, Qual Negative (Negative) 08/01/17 Unknown Urine Color Yellow (Yellow) 08/01/17 17:50 Urine Turbidity Clear (Clear) 08/01/17 17:50 Urine pH 6.0 (5.0-7.0) 08/01/17 17:50 Ur Specific [place] 1.014 (1.003-1.030) 08/01/17 17:50 Urine Protein <15 mg/dl mg/dL (Negative) 08/01/17 17:50 Urine Glucose (UA) Neg mg/dL (Negative) 08/01/17 17:50 Urine Ketones Tr mg/dL (Negative) 08/01/17 17:50 Urine Blood Neg (Negative) 08/01/17 17:50 Urine Nitrite Neg (Negative) 08/01/17 17:50 Urine Bilirubin Neg (Negative) 08/01/17 17:50 Urine Urobilinogen 4.0 mg/dL (<2.0) 08/01/17 17:50 Ur Leukocyte Esterase Neg (Negative) 08/01/17 17:50 Urine WBC (Auto) 1.0 /HPF (0.0-6.0) 08/01/17 17:50 Urine RBC (Auto) 1.0 /HPF (0.0-6.0) 08/01/17 17:50 U Epithel Cells (Auto) < 1.0 /HPF (0-13.0) 08/01/17 17:50 Urine Mucus 1+ /HPF 08/01/17 17:50 Salicylates < 0.3 mg/dL (2.8-20.0) L 08/01/17 17:00 Urine Opiates Screen Presumptive negative 08/01/17 17:50 Urine Methadone Screen Presumptive negative 08/01/17 17:50 Acetaminophen < 15.0 ug/mL (10.0-30.0) 08/02/17 18:31 Ur Barbiturates Screen Presumptive negative 08/01/17 17:50 Ur Phencyclidine Scrn Presumptive negative 02/12/18 17:50 Ur Amphetamines Screen Presumptive negative 08/01/17 17:50 U Benzodiazepines Scrn Presumptive negative 08/01/17 17:50 Urine Cocaine Screen Presumptive negative 08/01/17 17:50 U Marijuana (THC) Screen Presumptive negative 08/01/17 17:50 Drugs of Abuse Note Disclamer 08/01/17 17:50 Plasma/Serum Alcohol < 0.01 % (0-0.07) 08/01/17 17:00
[2017-08-04] MEDS: LOVENOX SUB-Q SCH (21:43)
[2017-08-04] MEDS: PEPCID PO SCH (21:43)
[2017-08-05 05:22] LABS: Hematocrit 29.7 % (30.3-42.9); Hemoglobin 9.3 gm/dl (10.1-14.3); Mean Corpuscular HGB Conc 31 % (30-34); Mean Corpuscular Volume 76 fl (79-97); Platelet Count 294 K/mm3 (140-440)
[2017-08-05 05:32] LABS: Mean Corpuscular Hemoglobin 24 pg (28-32); Red Cell Distribution Width 26.9 % (13.2-15.2)
[2017-08-05 05:37] LABS: BUN/Creatinine Ratio 22; Blood Urea Nitrogen 13 mg/dL (7-17); Calcium 8.2 mg/dL (8.4-10.2); Hemolysis Index 9
[2017-08-05 06:53] LABS: Total Cells Counted 100
[2017-08-05 06:54] LABS: Basophils % (Manual) 0 % (0.0-1.8)
[2017-08-05 06:55] LABS: Anisocytosis 3+; Hypochromasia 1+; Macrocytosis 1+
[2017-08-05] MEDS: PEPCID PO SCH ×2 (10:08→22:03)
--- NOTE | 2017-08-05 14:10 | Progress Note ---
Assessment and Plan Assessment and plan: Suicidal attempt with flexril overdose and chronic monoxide poisoning - Patient was intubated yesterday and currently extubated no issues - Patient is admitted to the floor on 1012 Major depression disorder - Psych consulted and said we'll transfer her to inpatient psych facility DVT prophylaxis - Lovenox Disposition - Patient is cleared medically for discharge and discharge is per psychiatry History Interval history: Patient was seen and evaluated this morning, patient denied suicidal ideation at this time, She said she feels OK. Hospitalist Physical - Physical exam Narrative exam: Not in cardiopulmonary distress. The patient appeared well nourished and normally developed. Vital signs as documented. Head exam is unremarkable. No scleral icterus . Neck is without jugular venous distension, thyromegaly, or carotid bruits. Lungs are clear to auscultation. Cardiac exam reveals regular rate and Rhythm. First and second heart sounds normal. No murmurs, rubs or gallops. Abdominal exam reveals normal bowel sounds, no masses, no organomegaly and no aortic enlargement. Extremities are nonedematous and both femoral and pedal pulses are normal. CLINICAL LABORATORY TECHNICIAN: Alert and oriented 3. No focal weakness. - Constitutional Vitals: Temp Pulse Resp BP Pulse Ox 97.9 F 80 18 139/86 99 08/05/17 07:17 08/05/17 07:17 08/05/17 07:17 08/05/17 07:17 08/05/17 07:17 General appearance: Present: no acute distress, well-nourished Results - Labs CBC & Chem 7: 08/05/17 04:58 08/05/17 04:58 Labs: Laboratory Last Values WBC 4.8 K/mm3 (4.5-11.0) 08/05/17 04:58 RBC 3.90 M/mm3 (3.65-5.03) 08/05/17 04:58 Hgb 9.3 gm/dl (10.1-14.3) L 08/05/17 04:58 Hct 29.7 % (30.3-42.9) L 08/05/17 04:58 MCV 76 fl (79-97) L 08/05/17 04:58 MCH 24 pg (28-32) L 08/05/17 04:58 MCHC 31 % (30-34) 08/05/17 04:58 RDW 26.9 % (13.2-15.2) H 08/05/17 04:58 Plt Count 294 K/mm3 (140-440) 08/05/17 04:58 Lymph % (Auto) 27.6 % (13.4-35.0) 08/03/17 04:00 [place] % (Auto) 8.8 % (0.0-7.3) H 08/03/17 04:00 Eos % (Auto) 4.2 % (0.0-4.3) 08/03/17 04:00 Baso % (Auto) 0.5 % (0.0-1.8) 08/03/17 04:00 Lymph # 1.0 K/mm3 (1.2-5.4) L 08/03/17 04:00 [place] # 0.3 K/mm3 (0.0-0.8) 08/03/17 04:00 Eos # 0.1 K/mm3 (0.0-0.4) 08/03/17 04:00 Baso # 0.0 K/mm3 (0.0-0.1) 08/03/17 04:00 Add Manual Diff Complete 08/05/17 04:58 Total Counted 100 08/05/17 04:58 Seg Neutrophils % 58.9 % (40.0-70.0) 08/03/17 04:00 Seg Neuts % (Manual) 46.0 % (40.0-70.0) 08/05/17 04:58 Band Neutrophils % 1.0 % 08/05/17 04:58 Lymphocytes % (Manual) 40.0 % (13.4-35.0) H 08/05/17 04:58 Reactive Lymphs % (Man) 0 % 08/05/17 04:58 Monocytes % (Manual) 5.0 % (0.0-7.3) 08/05/17 04:58 Eosinophils % (Manual) 7.0 % (0.0-4.3) H 08/05/17 04:58 Basophils % (Manual) 0 % (0.0-1.8) 08/05/17 04:58 Metamyelocytes % 1.0 % 08/05/17 04:58 Myelocytes % 0 % 08/05/17 04:58 Promyelocytes % 0 % 08/05/17 04:58 Blast Cells % 0 % 08/05/17 04:58 Nucleated RBC % Not Reportable 08/05/17 04:58 Seg Neutrophils # 2.1 K/mm3 (1.8-7.7) 08/03/17 04:00 Seg Neutrophils # Man 2.2 K/mm3 (1.8-7.7) 08/05/17 04:58 Band Neutrophils # 0.0 K/mm3 08/05/17 04:58 Lymphocytes # (Manual) 1.9 K/mm3 (1.2-5.4) 08/05/17 04:58 Abs React Lymphs (Man) 0.0 K/mm3 08/05/17 04:58 Monocytes # (Manual) 0.2 K/mm3 (0.0-0.8) 08/05/17 04:58 Eosinophils # (Manual) 0.3 K/mm3 (0.0-0.4) 08/05/17 04:58 Basophils # (Manual) 0.0 K/mm3 (0.0-0.1) 08/05/17 04:58 Metamyelocytes # 0.0 K/mm3 08/05/17 04:58 Myelocytes # 0.0 K/mm3 08/05/17 04:58 Promyelocytes # 0.0 K/mm3 08/05/17 04:58 Blast Cells # 0.0 K/mm3 08/05/17 04:58 WBC Morphology Not Reportable 08/05/17 04:58 Hypersegmented Neuts Not Reportable 08/05/17 04:58 Hyposegmented Neuts Not Reportable 08/05/17 04:58 Hypogranular Neuts Not Reportable 08/05/17 04:58 Smudge Cells Not Reportable 08/05/17 04:58 Toxic Granulation Not Reportable 08/05/17 04:58 Toxic Vacuolation Not Reportable 08/05/17 04:58 Dohle Bodies Not Reportable 08/05/17 04:58 Pelger-Huet Anomaly Not Reportable 08/05/17 04:58 Aron Rods Not Reportable 08/05/17 04:58 Platelet Estimate Appears normal 08/05/17 04:58 Clumped Platelets Not Reportable 08/05/17 04:58 Plt Clumps, EDTA Not Reportable 08/05/17 04:58 Large Platelets Not Reportable 08/05/17 04:58 Giant Platelets Not Reportable 08/05/17 04:58 Platelet Satelliting Not Reportable 08/05/17 04:58 Plt Morphology Comment Not Reportable 08/05/17 04:58 RBC Morphology Not Reportable 08/05/17 04:58 Dimorphic RBCs Not Reportable 08/05/17 04:58 Polychromasia Not Reportable 08/05/17 04:58 Hypochromasia 1+ 08/05/17 04:58 Poikilocytosis Not Reportable 08/05/17 04:58 Anisocytosis 3+ 08/05/17 04:58 Microcytosis Not Reportable 08/05/17 04:58 Macrocytosis 1+ 08/05/17 04:58 Spherocytes Not Reportable 08/05/17 04:58 Pappenheimer Bodies Not Reportable 08/05/17 04:58 Sickle Cells Not Reportable 08/05/17 04:58 Target Cells Not Reportable 08/05/17 04:58 Tear Drop Cells Not Reportable 08/05/17 04:58 Ovalocytes Not Reportable 08/05/17 04:58 Helmet Cells Not Reportable 08/05/17 04:58 [place] Bodies Not Reportable 08/05/17 04:58 [place] Rings Not Reportable 08/05/17 04:58 Nini Cells Not Reportable 08/05/17 04:58 Bite Cells Not Reportable 08/05/17 04:58 Crenated Cell Not Reportable 08/05/17 04:58 Elliptocytes Not Reportable 08/05/17 04:58 Acanthocytes (Spur) Not Reportable 08/05/17 04:58 Rouleaux Not Reportable 08/05/17 04:58 Hemoglobin C Crystals Not Reportable 08/05/17 04:58 Schistocytes Not Reportable 08/05/17 04:58 Malaria parasites Not Reportable 08/05/17 04:58 Azael Bodies Not Reportable 08/05/17 04:58 Hem Pathologist Commnt No 08/05/17 04:58 PT 14.4 Sec. (12.2-14.9) 08/02/17 18:31 INR 1.06 (0.87-1.13) 08/02/17 18:31 APTT 34.3 Sec. (24.2-36.6) 08/02/17 02:50 POC ABG pH 7.378 (7.35-7.45) 08/01/17 19:19 POC ABG pCO2 46.5 (35-45) H 08/01/17 19:19 POC ABG pO2 480 (80-105) H 08/01/17 19:19 POC ABG HCO3 27.4 08/01/17 19:19 POC ABG Total CO2 29 08/01/17 19:19 POC ABG O2 Sat 100 08/01/17 19:19 POC ABG Base Excess 2 08/01/17 19:19 Carboxyhemoglobin 3.3 08/01/17 21:52 FiO2 98 % 08/01/17 19:19 Sodium 141 mmol/L (137-145) 08/05/17 04:58 Potassium 4.5 mmol/L (3.6-5.0) 08/05/17 04:58 Chloride 104.5 mmol/L (98-107) 08/05/17 04:58 Carbon Dioxide 25 mmol/L (22-30) 08/05/17 04:58 Anion Gap 16 mmol/L 08/05/17 04:58 BUN 13 mg/dL (7-17) 08/05/17 04:58 Creatinine 0.6 mg/dL (0.7-1.2) L 08/05/17 04:58 Estimated GFR > 60 ml/min 08/05/17 04:58 BUN/Creatinine Ratio 22 % 08/05/17 04:58 Glucose 91 mg/dL (65-100) 08/05/17 04:58 Calcium 8.2 mg/dL (8.4-10.2) L 08/05/17 04:58 Total Bilirubin 0.30 mg/dL (0.1-1.2) 08/04/17 05:57 Direct Bilirubin < 0.2 mg/dL (0-0.2) 08/02/17 18:31 Indirect Bilirubin 0.6 mg/dL 08/02/17 18:31 AST 8 units/L (5-40) 08/04/17 05:57 ALT 5 units/L (7-56) L 08/04/17 05:57 Alkaline Phosphatase 56 units/L (35-129) 08/04/17 05:57 Total Creatine Kinase 174 units/L (30-135) H 08/01/17 21:52 Total Protein 6.2 g/dL (6.3-8.2) L 08/04/17 05:57 Albumin 3.2 g/dL (3.9-5) L 08/04/17 05:57 Albumin/Globulin Ratio 1.1 % 08/04/17 05:57 HCG, Qual Negative (Negative) 08/01/17 Unknown Urine Color Yellow (Yellow) 08/01/17 17:50 Urine Turbidity Clear (Clear) 08/01/17 17:50 Urine pH 6.0 (5.0-7.0) 08/01/17 17:50 Ur Specific [place] 1.014 (1.003-1.030) 08/01/17 17:50 Urine Protein <15 mg/dl mg/dL (Negative) 08/01/17 17:50 Urine Glucose (UA) Neg mg/dL (Negative) 08/01/17 17:50 Urine Ketones Tr mg/dL (Negative) 08/01/17 17:50 Urine Blood Neg (Negative) 08/01/17 17:50 Urine Nitrite Neg (Negative) 08/01/17 17:50 Urine Bilirubin Neg (Negative) 08/01/17 17:50 Urine Urobilinogen 4.0 mg/dL (<2.0) 08/01/17 17:50 Ur Leukocyte Esterase Neg (Negative) 08/01/17 17:50 Urine WBC (Auto) 1.0 /HPF (0.0-6.0) 08/01/17 17:50 Urine RBC (Auto) 1.0 /HPF (0.0-6.0) 08/01/17 17:50 U Epithel Cells (Auto) < 1.0 /HPF (0-13.0) 08/01/17 17:50 Urine Mucus 1+ /HPF 08/01/17 17:50 Salicylates < 0.3 mg/dL (2.8-20.0) L 08/01/17 17:00 Urine Opiates Screen Presumptive negative 08/01/17 17:50 Urine Methadone Screen Presumptive negative 08/01/17 17:50 Acetaminophen < 15.0 ug/mL (10.0-30.0) 08/02/17 18:31 Ur Barbiturates Screen Presumptive negative 08/01/17 17:50 Ur Phencyclidine Scrn Presumptive negative 08/01/17 17:50 Ur Amphetamines Screen Presumptive negative 08/01/17 17:50 U Benzodiazepines Scrn Presumptive negative 08/01/17 17:50 Urine Cocaine Screen Presumptive negative 08/01/17 17:50 U Marijuana (THC) Screen Presumptive negative 08/01/17 17:50 Drugs of Abuse Note Disclamer 08/01/17 17:50 Plasma/Serum Alcohol < 0.01 % (0-0.07) 08/01/17 17:00
--- NOTE | 2017-08-05 15:51 | Progress Note ---
Subjective - Reason for Consult Consult date: 08/05/17 Reason for consult: Psychiatry Follow-up - Chief Complaint Chief complaint: "When can I leave" This is a 42-year-old female who apparently was trying to kill herself with by carbon monoxide poisoning and taking a entire bottle of Flexeril pills. Today the patient is calm and cooperative during the assessment. She stated that she has a support system in place to help her handle stressful situations. She stated that she feel "bad" about her actions prior to her admission to the hospital. She stated that she plan to follow-up with a therapist once discharged. She denies SI/HI's and AVH's. Mental Status Exam - Vital signs Last Vital Signs Temp 97.9 F 08/05/17 07:17 Pulse 80 08/05/17 07:17 Resp 18 08/05/17 07:17 BP 139/86 08/05/17 07:17 Pulse Ox 99 08/05/17 07:17 - Exam Narrative exam: MSE: Appearance: calm, cooperative Behavior: regular eye contact Speech: regular rate and tone Mood: "okay" withdrawn Affect: congruent to mood Thought Process: logical Thought Content: denies HI's and AVH's Motor Activity: lying in bed Cognition: A/O x3 Insight: fair Judgment: fair Assessment and Plan Impression: MD, Severe Type. Today the patient is calm and cooperative during the assessment. Patient intentionally tried to kill herself by CO poisoning and took an entire bottle of Flexeril pills. DDx: R/O Bipolar DO Recommendation/Plan: Continue 1013 with placement to inpatient psy services. Risk/Benefits of antidepressants discussed with patient. She prefer to talk with a therapist for treatment.
[2017-08-05] MEDS: LOVENOX SUB-Q SCH (22:03)
[2017-08-06] MEDS: PEPCID PO SCH ×2 (10:51→22:42)
--- NOTE | 2017-08-06 17:02 | Progress Note ---
Subjective - Reason for Consult Consult date: 08/06/17 Reason for consult: follow up - Chief Complaint Chief complaint: "You are the one keeping me from leaving." This is a 42-year-old female who apparently was trying to kill herself with by carbon monoxide poisoning and taking a entire bottle of Flexeril pills. Today the patient is calm and cooperative during the assessment. She stated that she has a support system in place to help her handle stressful situations. She stated that she plan to follow-up with a therapist once discharged. She denies SI/HI's and AVH's. Mental Status Exam - Vital signs Last Vital Signs Temp 98.9 F 08/06/17 16:48 Pulse 36 L 08/06/17 16:48 Resp 18 08/06/17 16:48 BP 158/103 08/06/17 16:48 Pulse Ox 79 L 08/06/17 16:48 - Exam Narrative exam: MSE: Appearance: calm, cooperative Behavior: regular eye contact Speech: regular rate and tone Mood: irritable Affect: congruent to mood Thought Process: logical Thought Content: denies SI/HI's and AVH's Motor Activity: lying in bed Cognition: A/O x3 Insight: fair Judgment: fair Assessment and Plan Impression: MDD, Severe Type. Today the patient is calm and cooperative during the assessment. Patient intentionally tried to kill herself by CO poisoning and took an entire bottle of Flexeril pills. DDx: R/O Bipolar DO Recommendation/Plan: Continue 1013 with placement to inpatient psy services. Risk/Benefits of antidepressants discussed with patient. She prefers to talk with a therapist for treatment. Inpatient psychiatric treatment is planned and the mental health team is proceeding with finding placement. She was informed of the process and need for further evaluation and treatment. Continue 1013.
[2017-08-06] MEDS: LOVENOX SUB-Q SCH (22:42)
[2017-08-07] MEDS: PEPCID PO SCH ×2 (09:17→23:00)
--- NOTE | 2017-08-07 11:20 | Progress Note ---
Assessment and Plan Assessment and plan: Suicidal attempt with flexril overdose and chronic monoxide poisoning - Patient was intubated yesterday and currently extubated no issues - Patient is admitted to the floor on 1012 Major depression disorder - Psych consulted and said we'll transfer her to inpatient psych facility Hypertension - On amlodipine 5mg - will follow DVT prophylaxis - Lovenox Disposition - Patient is cleared medically for discharge and discharge is per psychiatry History Interval history: Patient was seen and evaluated this morning, patient denied suicidal ideation at this time, She said she feels OK. Hospitalist Physical - Physical exam Narrative exam: Not in cardiopulmonary distress. The patient appeared well nourished and normally developed. Vital signs as documented. Head exam is unremarkable. No scleral icterus . Neck is without jugular venous distension, thyromegaly, or carotid bruits. Lungs are clear to auscultation. Cardiac exam reveals regular rate and Rhythm. First and second heart sounds normal. No murmurs, rubs or gallops. Abdominal exam reveals normal bowel sounds, no masses, no organomegaly and no aortic enlargement. Extremities are nonedematous and both femoral and pedal pulses are normal. CRITICAL CARE TECHNICIAN: Alert and oriented 3. No focal weakness. - Constitutional Vitals: Temp Pulse Resp BP Pulse Ox 98.7 F 83 20 149/100 100 08/07/17 07:24 08/07/17 07:24 08/07/17 07:24 08/07/17 07:24 08/07/17 07:24 General appearance: Present: no acute distress, well-nourished Results - Labs CBC & Chem 7: 08/05/17 04:58 08/05/17 04:58 Labs: Laboratory Last Values WBC 4.8 K/mm3 (4.5-11.0) 08/05/17 04:58 RBC 3.90 M/mm3 (3.65-5.03) 08/05/17 04:58 Hgb 9.3 gm/dl (10.1-14.3) L 08/05/17 04:58 Hct 29.7 % (30.3-42.9) L 08/05/17 04:58 MCV 76 fl (79-97) L 08/05/17 04:58 MCH 24 pg (28-32) L 08/05/17 04:58 MCHC 31 % (30-34) 08/05/17 04:58 RDW 26.9 % (13.2-15.2) H 08/05/17 04:58 Plt Count 294 K/mm3 (140-440) 08/05/17 04:58 Lymph % (Auto) 27.6 % (13.4-35.0) 08/03/17 04:00 [place] % (Auto) 8.8 % (0.0-7.3) H 08/03/17 04:00 Eos % (Auto) 4.2 % (0.0-4.3) 08/03/17 04:00 Baso % (Auto) 0.5 % (0.0-1.8) 08/03/17 04:00 Lymph # 1.0 K/mm3 (1.2-5.4) L 08/03/17 04:00 [place] # 0.3 K/mm3 (0.0-0.8) 08/03/17 04:00 Eos # 0.1 K/mm3 (0.0-0.4) 08/03/17 04:00 Baso # 0.0 K/mm3 (0.0-0.1) 08/03/17 04:00 Add Manual Diff Complete 08/05/17 04:58 Total Counted 100 08/05/17 04:58 Seg Neutrophils % 58.9 % (40.0-70.0) 08/03/17 04:00 Seg Neuts % (Manual) 46.0 % (40.0-70.0) 08/05/17 04:58 Band Neutrophils % 1.0 % 08/05/17 04:58 Lymphocytes % (Manual) 40.0 % (13.4-35.0) H 08/05/17 04:58 Reactive Lymphs % (Man) 0 % 08/05/17 04:58 Monocytes % (Manual) 5.0 % (0.0-7.3) 08/05/17 04:58 Eosinophils % (Manual) 7.0 % (0.0-4.3) H 08/05/17 04:58 Basophils % (Manual) 0 % (0.0-1.8) 08/05/17 04:58 Metamyelocytes % 1.0 % 08/05/17 04:58 Myelocytes % 0 % 08/05/17 04:58 Promyelocytes % 0 % 08/05/17 04:58 Blast Cells % 0 % 08/05/17 04:58 Nucleated RBC % Not Reportable 08/05/17 04:58 Seg Neutrophils # 2.1 K/mm3 (1.8-7.7) 08/03/17 04:00 Seg Neutrophils # Man 2.2 K/mm3 (1.8-7.7) 08/05/17 04:58 Band Neutrophils # 0.0 K/mm3 08/05/17 04:58 Lymphocytes # (Manual) 1.9 K/mm3 (1.2-5.4) 08/05/17 04:58 Abs React Lymphs (Man) 0.0 K/mm3 08/05/17 04:58 Monocytes # (Manual) 0.2 K/mm3 (0.0-0.8) 08/05/17 04:58 Eosinophils # (Manual) 0.3 K/mm3 (0.0-0.4) 08/05/17 04:58 Basophils # (Manual) 0.0 K/mm3 (0.0-0.1) 08/05/17 04:58 Metamyelocytes # 0.0 K/mm3 08/05/17 04:58 Myelocytes # 0.0 K/mm3 08/05/17 04:58 Promyelocytes # 0.0 K/mm3 08/05/17 04:58 Blast Cells # 0.0 K/mm3 08/05/17 04:58 WBC Morphology Not Reportable 08/05/17 04:58 Hypersegmented Neuts Not Reportable 08/05/17 04:58 Hyposegmented Neuts Not Reportable 08/05/17 04:58 Hypogranular Neuts Not Reportable 08/05/17 04:58 Smudge Cells Not Reportable 08/05/17 04:58 Toxic Granulation Not Reportable 08/05/17 04:58 Toxic Vacuolation Not Reportable 08/05/17 04:58 Dohle Bodies Not Reportable 08/05/17 04:58 Pelger-Huet Anomaly Not Reportable 08/05/17 04:58 Aron Rods Not Reportable 08/05/17 04:58 Platelet Estimate Appears normal 08/05/17 04:58 Clumped Platelets Not Reportable 08/05/17 04:58 Plt Clumps, EDTA Not Reportable 08/05/17 04:58 Large Platelets Not Reportable 08/05/17 04:58 Giant Platelets Not Reportable 08/05/17 04:58 Platelet Satelliting Not Reportable 08/05/17 04:58 Plt Morphology Comment Not Reportable 08/05/17 04:58 RBC Morphology Not Reportable 08/05/17 04:58 Dimorphic RBCs Not Reportable 08/05/17 04:58 Polychromasia Not Reportable 08/05/17 04:58 Hypochromasia 1+ 08/05/17 04:58 Poikilocytosis Not Reportable 08/05/17 04:58 Anisocytosis 3+ 08/05/17 04:58 Microcytosis Not Reportable 08/05/17 04:58 Macrocytosis 1+ 08/05/17 04:58 Spherocytes Not Reportable 08/05/17 04:58 Pappenheimer Bodies Not Reportable 08/05/17 04:58 Sickle Cells Not Reportable 08/05/17 04:58 Target Cells Not Reportable 08/05/17 04:58 Tear Drop Cells Not Reportable 08/05/17 04:58 Ovalocytes Not Reportable 08/05/17 04:58 Helmet Cells Not Reportable 08/05/17 04:58 Duenas-[place] Bodies Not Reportable 08/05/17 04:58 [place] Rings Not Reportable 08/05/17 04:58 [place] Cells Not Reportable 08/05/17 04:58 Bite Cells Not Reportable 08/05/17 04:58 Crenated Cell Not Reportable 08/05/17 04:58 Elliptocytes Not Reportable 08/05/17 04:58 Acanthocytes (Spur) Not Reportable 08/05/17 04:58 Rouleaux Not Reportable 08/05/17 04:58 Hemoglobin C Crystals Not Reportable 08/05/17 04:58 Schistocytes Not Reportable 08/05/17 04:58 Malaria parasites Not Reportable 08/05/17 04:58 Azael Bodies Not Reportable 08/05/17 04:58 Hem Pathologist Commnt No 08/05/17 04:58 PT 14.4 Sec. (12.2-14.9) 08/02/17 18:31 INR 1.06 (0.87-1.13) 08/02/17 18:31 APTT 34.3 Sec. (24.2-36.6) 08/02/17 02:50 POC ABG pH 7.378 (7.35-7.45) 08/01/17 19:19 POC ABG pCO2 46.5 (35-45) H 08/01/17 19:19 POC ABG pO2 480 (80-105) H 08/01/17 19:19 POC ABG HCO3 27.4 08/01/17 19:19 POC ABG Total CO2 29 08/01/17 19:19 POC ABG O2 Sat 100 08/01/17 19:19 POC ABG Base Excess 2 08/01/17 19:19 Carboxyhemoglobin 3.3 08/01/17 21:52 FiO2 98 % 08/01/17 19:19 Sodium 141 mmol/L (137-145) 08/05/17 04:58 Potassium 4.5 mmol/L (3.6-5.0) 08/05/17 04:58 Chloride 104.5 mmol/L (98-107) 08/05/17 04:58 Carbon Dioxide 25 mmol/L (22-30) 08/05/17 04:58 Anion Gap 16 mmol/L 08/05/17 04:58 BUN 13 mg/dL (7-17) 08/05/17 04:58 Creatinine 0.6 mg/dL (0.7-1.2) L 08/05/17 04:58 Estimated GFR > 60 ml/min 08/05/17 04:58 BUN/Creatinine Ratio 22 % 08/05/17 04:58 Glucose 91 mg/dL (65-100) 08/05/17 04:58 Calcium 8.2 mg/dL (8.4-10.2) L 08/05/17 04:58 Total Bilirubin 0.30 mg/dL (0.1-1.2) 08/04/17 05:57 Direct Bilirubin < 0.2 mg/dL (0-0.2) 08/02/17 18:31 Indirect Bilirubin 0.6 mg/dL 08/02/17 18:31 AST 8 units/L (5-40) 08/04/17 05:57 ALT 5 units/L (7-56) L 08/04/17 05:57 Alkaline Phosphatase 56 units/L (35-129) 08/04/17 05:57 Total Creatine Kinase 174 units/L (30-135) H 08/01/17 21:52 Total Protein 6.2 g/dL (6.3-8.2) L 08/04/17 05:57 Albumin 3.2 g/dL (3.9-5) L 08/04/17 05:57 Albumin/Globulin Ratio 1.1 % 08/04/17 05:57 HCG, Qual Negative (Negative) 08/01/17 Unknown Urine Color Yellow (Yellow) 08/01/17 17:50 Urine Turbidity Clear (Clear) 08/01/17 17:50 Urine pH 6.0 (5.0-7.0) 08/01/17 17:50 Ur Specific [place] 1.014 (1.003-1.030) 08/01/17 17:50 Urine Protein <15 mg/dl mg/dL (Negative) 08/01/17 17:50 Urine Glucose (UA) Neg mg/dL (Negative) 08/01/17 17:50 Urine Ketones Tr mg/dL (Negative) 08/01/17 17:50 Urine Blood Neg (Negative) 08/01/17 17:50 Urine Nitrite Neg (Negative) 08/01/17 17:50 Urine Bilirubin Neg (Negative) 08/01/17 17:50 Urine Urobilinogen 4.0 mg/dL (<2.0) 08/01/17 17:50 Ur Leukocyte Esterase Neg (Negative) 08/01/17 17:50 Urine WBC (Auto) 1.0 /HPF (0.0-6.0) 08/01/17 17:50 Urine RBC (Auto) 1.0 /HPF (0.0-6.0) 08/01/17 17:50 U Epithel Cells (Auto) < 1.0 /HPF (0-13.0) 08/01/17 17:50 Urine Mucus 1+ /HPF 08/01/17 17:50 Salicylates < 0.3 mg/dL (2.8-20.0) L 08/01/17 17:00 Urine Opiates Screen Presumptive negative 08/01/17 17:50 Urine Methadone Screen Presumptive negative 08/01/17 17:50 Acetaminophen < 15.0 ug/mL (10.0-30.0) 08/02/17 18:31 Ur Barbiturates Screen Presumptive negative 08/01/17 17:50 Ur Phencyclidine Scrn Presumptive negative 08/01/17 17:50 Ur Amphetamines Screen Presumptive negative 08/01/17 17:50 U Benzodiazepines Scrn Presumptive negative 08/01/17 17:50 Urine Cocaine Screen Presumptive negative 08/01/17 17:50 U Marijuana (THC) Screen Presumptive negative 08/01/17 17:50 Drugs of Abuse Note Disclamer 08/01/17 17:50 Plasma/Serum Alcohol < 0.01 % (0-0.07) 08/01/17 17:00
[2017-08-07] MEDS: NORVASC PO SCH (12:00)
--- NOTE | 2017-08-07 15:11 | Progress Note ---
Subjective - Reason for Consult Consult date: 08/07/17 Reason for consult: follow up - Chief Complaint Chief complaint: "I'm just waiting." This is a 42-year-old female who apparently was trying to kill herself with by carbon monoxide poisoning and taking a entire bottle of Flexeril pills. Today the patient is calm and cooperative during the assessment. She stated that she has a support system in place to help her handle stressful situations. She stated that she plan to follow-up with a therapist once discharged. She denies SI/HI's and AVH's. She denies any changes. Mental Status Exam - Vital signs Last Vital Signs Temp 98.7 F 08/07/17 07:24 Pulse 83 08/07/17 07:24 Resp 20 08/07/17 07:24 BP 149/100 08/07/17 07:24 Pulse Ox 100 08/07/17 07:24 - Exam Narrative exam: MSE: Appearance: calm, cooperative Behavior: regular eye contact Speech: regular rate and tone Mood: irritable Affect: congruent to mood Thought Process: logical Thought Content: denies SI/HI's and AVH's Motor Activity: lying in bed Cognition: A/O x3 Insight: fair Judgment: fair Assessment and Plan Impression: MDD, Severe Type. Today the patient is calm and cooperative during the assessment. Patient intentionally tried to kill herself by CO poisoning and took an entire bottle of Flexeril pills. DDx: R/O Bipolar DO Recommendation/Plan: Continue 1013 with placement to inpatient psy services. Risk/Benefits of antidepressants discussed with patient. She prefers to talk with a therapist for treatment. Inpatient psychiatric treatment is planned and the mental health team is proceeding with finding placement. She was informed of the process and need for further evaluation and treatment. Continue 1013.
[2017-08-07] MEDS: LOVENOX SUB-Q SCH (23:00)
[2017-08-08] MEDS: NORVASC PO SCH (12:02)
[2017-08-08] MEDS: ASPIRIN PO SCH (12:02)
[2017-08-08] MEDS: PEPCID PO SCH ×2 (12:02→22:47)
--- NOTE | 2017-08-08 12:58 | Progress Note ---
Assessment and Plan Assessment and plan: Suicidal attempt with flexril overdose and chronic monoxide poisoning - Patient was intubated yesterday and currently extubated no issues - Patient is admitted to the floor on 101 Superficial venous thrombosis - Aspirin, pain control, no anticoagulation is needed Major depression disorder - Psych consulted and said we'll transfer her to inpatient psych facility Hypertension - On amlodipine 5mg - will follow DVT prophylaxis - Lovenox Disposition - Patient is cleared medically for discharge and discharge is per psychiatry History Interval history: Patient was seen and evaluated this morning, patient denied suicidal ideation at this time, She said she feels OK. Right antecubital fossa pain. Hospitalist Physical - Physical exam Narrative exam: Not in cardiopulmonary distress. The patient appeared well nourished and normally developed. Vital signs as documented. Head exam is unremarkable. No scleral icterus . Neck is without jugular venous distension, thyromegaly, or carotid bruits. Lungs are clear to auscultation. Cardiac exam reveals regular rate and Rhythm. First and second heart sounds normal. No murmurs, rubs or gallops. Abdominal exam reveals normal bowel sounds, no masses, no organomegaly and no aortic enlargement. Extremities are nonedematous and both femoral and pedal pulses are normal. Mild antecubital fossa tenderness. STRUCTURAL ANALYSIS ENGINEER: Alert and oriented 3. No focal weakness. - Constitutional Vitals: Temp Pulse Resp BP Pulse Ox 99.2 F 110 H 18 136/90 100 08/07/17 22:21 08/08/17 12:02 08/07/17 22:21 08/08/17 12:02 08/07/17 22:21 General appearance: Present: no acute distress, well-nourished Results - Labs CBC & Chem 7: 08/05/17 04:58 08/05/17 04:58 Labs: Laboratory Last Values WBC 4.8 K/mm3 (4.5-11.0) 08/05/17 04:58 RBC 3.90 M/mm3 (3.65-5.03) 08/05/17 04:58 Hgb 9.3 gm/dl (10.1-14.3) L 08/05/17 04:58 Hct 29.7 % (30.3-42.9) L 08/05/17 04:58 MCV 76 fl (79-97) L 08/05/17 04:58 MCH 24 pg (28-32) L 08/05/17 04:58 MCHC 31 % (30-34) 08/05/17 04:58 RDW 26.9 % (13.2-15.2) H 08/05/17 04:58 Plt Count 294 K/mm3 (140-440) 08/05/17 04:58 Lymph % (Auto) 27.6 % (13.4-35.0) 08/03/17 04:00 [place] % (Auto) 8.8 % (0.0-7.3) H 08/03/17 04:00 Eos % (Auto) 4.2 % (0.0-4.3) 08/03/17 04:00 Baso % (Auto) 0.5 % (0.0-1.8) 08/03/17 04:00 Lymph # 1.0 K/mm3 (1.2-5.4) L 08/03/17 04:00 [place] # 0.3 K/mm3 (0.0-0.8) 08/03/17 04:00 Eos # 0.1 K/mm3 (0.0-0.4) 08/03/17 04:00 Baso # 0.0 K/mm3 (0.0-0.1) 08/03/17 04:00 Add Manual Diff Complete 08/05/17 04:58 Total Counted 100 08/05/17 04:58 Seg Neutrophils % 58.9 % (40.0-70.0) 08/03/17 04:00 Seg Neuts % (Manual) 46.0 % (40.0-70.0) 08/05/17 04:58 Band Neutrophils % 1.0 % 08/05/17 04:58 Lymphocytes % (Manual) 40.0 % (13.4-35.0) H 08/05/17 04:58 Reactive Lymphs % (Man) 0 % 08/05/17 04:58 Monocytes % (Manual) 5.0 % (0.0-7.3) 08/05/17 04:58 Eosinophils % (Manual) 7.0 % (0.0-4.3) H 08/05/17 04:58 Basophils % (Manual) 0 % (0.0-1.8) 08/05/17 04:58 Metamyelocytes % 1.0 % 08/05/17 04:58 Myelocytes % 0 % 08/05/17 04:58 Promyelocytes % 0 % 08/05/17 04:58 Blast Cells % 0 % 08/05/17 04:58 Nucleated RBC % Not Reportable 08/05/17 04:58 Seg Neutrophils # 2.1 K/mm3 (1.8-7.7) 08/03/17 04:00 Seg Neutrophils # Man 2.2 K/mm3 (1.8-7.7) 08/05/17 04:58 Band Neutrophils # 0.0 K/mm3 08/05/17 04:58 Lymphocytes # (Manual) 1.9 K/mm3 (1.2-5.4) 08/05/17 04:58 Abs React Lymphs (Man) 0.0 K/mm3 08/05/17 04:58 Monocytes # (Manual) 0.2 K/mm3 (0.0-0.8) 08/05/17 04:58 Eosinophils # (Manual) 0.3 K/mm3 (0.0-0.4) 08/05/17 04:58 Basophils # (Manual) 0.0 K/mm3 (0.0-0.1) 08/05/17 04:58 Metamyelocytes # 0.0 K/mm3 08/05/17 04:58 Myelocytes # 0.0 K/mm3 08/05/17 04:58 Promyelocytes # 0.0 K/mm3 08/05/17 04:58 Blast Cells # 0.0 K/mm3 08/05/17 04:58 WBC Morphology Not Reportable 08/05/17 04:58 Hypersegmented Neuts Not Reportable 08/05/17 04:58 Hyposegmented Neuts Not Reportable 08/05/17 04:58 Hypogranular Neuts Not Reportable 08/05/17 04:58 Smudge Cells Not Reportable 08/05/17 04:58 Toxic Granulation Not Reportable 08/05/17 04:58 Toxic Vacuolation Not Reportable 08/05/17 04:58 Dohle Bodies Not Reportable 08/05/17 04:58 Pelger-Huet Anomaly Not Reportable 08/05/17 04:58 Aron Rods Not Reportable 08/05/17 04:58 Platelet Estimate Appears normal 08/05/17 04:58 Clumped Platelets Not Reportable 08/05/17 04:58 Plt Clumps, EDTA Not Reportable 08/05/17 04:58 Large Platelets Not Reportable 08/05/17 04:58 Giant Platelets Not Reportable 08/05/17 04:58 Platelet Satelliting Not Reportable 08/05/17 04:58 Plt Morphology Comment Not Reportable 08/05/17 04:58 RBC Morphology Not Reportable 08/05/17 04:58 Dimorphic RBCs Not Reportable 08/05/17 04:58 Polychromasia Not Reportable 08/05/17 04:58 Hypochromasia 1+ 08/05/17 04:58 Poikilocytosis Not Reportable 08/05/17 04:58 Anisocytosis 3+ 08/05/17 04:58 Microcytosis Not Reportable 08/05/17 04:58 Macrocytosis 1+ 08/05/17 04:58 Spherocytes Not Reportable 08/05/17 04:58 Pappenheimer Bodies Not Reportable 08/05/17 04:58 Sickle Cells Not Reportable 08/05/17 04:58 Target Cells Not Reportable 08/05/17 04:58 Tear Drop Cells Not Reportable 08/05/17 04:58 Ovalocytes Not Reportable 08/05/17 04:58 Helmet Cells Not Reportable 08/05/17 04:58 [place] Bodies Not Reportable 08/05/17 04:58 [place] Rings Not Reportable 08/05/17 04:58 [place] Cells Not Reportable 08/05/17 04:58 Bite Cells Not Reportable 08/05/17 04:58 Crenated Cell Not Reportable 08/05/17 04:58 Elliptocytes Not Reportable 08/05/17 04:58 Acanthocytes (Spur) Not Reportable 08/05/17 04:58 Rouleaux Not Reportable 08/05/17 04:58 Hemoglobin C Crystals Not Reportable 08/05/17 04:58 Schistocytes Not Reportable 08/05/17 04:58 Malaria parasites Not Reportable 08/05/17 04:58 Azael Bodies Not Reportable 08/05/17 04:58 Hem Pathologist Commnt No 08/05/17 04:58 PT 14.4 Sec. (12.2-14.9) 08/02/17 18:31 INR 1.06 (0.87-1.13) 08/02/17 18:31 APTT 34.3 Sec. (24.2-36.6) 08/02/17 02:50 POC ABG pH 7.378 (7.35-7.45) 08/01/17 19:19 POC ABG pCO2 46.5 (35-45) H 08/01/17 19:19 POC ABG pO2 480 (80-105) H 08/01/17 19:19 POC ABG HCO3 27.4 08/01/17 19:19 POC ABG Total CO2 29 08/01/17 19:19 POC ABG O2 Sat 100 08/01/17 19:19 POC ABG Base Excess 2 08/01/17 19:19 Carboxyhemoglobin 3.3 08/01/17 21:52 FiO2 98 % 08/01/17 19:19 Sodium 141 mmol/L (137-145) 08/05/17 04:58 Potassium 4.5 mmol/L (3.6-5.0) 08/05/17 04:58 Chloride 104.5 mmol/L (98-107) 08/05/17 04:58 Carbon Dioxide 25 mmol/L (22-30) 08/05/17 04:58 Anion Gap 16 mmol/L 08/05/17 04:58 BUN 13 mg/dL (7-17) 08/05/17 04:58 Creatinine 0.6 mg/dL (0.7-1.2) L 08/05/17 04:58 Estimated GFR > 60 ml/min 08/05/17 04:58 BUN/Creatinine Ratio 22 % 08/05/17 04:58 Glucose 91 mg/dL (65-100) 08/05/17 04:58 Calcium 8.2 mg/dL (8.4-10.2) L 08/05/17 04:58 Total Bilirubin 0.30 mg/dL (0.1-1.2) 08/04/17 05:57 Direct Bilirubin < 0.2 mg/dL (0-0.2) 08/02/17 18:31 Indirect Bilirubin 0.6 mg/dL 08/02/17 18:31 AST 8 units/L (5-40) 08/04/17 05:57 ALT 5 units/L (7-56) L 08/04/17 05:57 Alkaline Phosphatase 56 units/L (35-129) 08/04/17 05:57 Total Creatine Kinase 174 units/L (30-135) H 08/01/17 21:52 Total Protein 6.2 g/dL (6.3-8.2) L 08/04/17 05:57 Albumin 3.2 g/dL (3.9-5) L 08/04/17 05:57 Albumin/Globulin Ratio 1.1 % 08/04/17 05:57 HCG, Qual Negative (Negative) 08/01/17 Unknown Urine Color Yellow (Yellow) 08/01/17 17:50 Urine Turbidity Clear (Clear) 08/01/17 17:50 Urine pH 6.0 (5.0-7.0) 08/01/17 17:50 Ur Specific [place] 1.014 (1.003-1.030) 08/01/17 17:50 Urine Protein <15 mg/dl mg/dL (Negative) 08/01/17 17:50 Urine Glucose (UA) Neg mg/dL (Negative) 08/01/17 17:50 Urine Ketones Tr mg/dL (Negative) 08/01/17 17:50 Urine Blood Neg (Negative) 08/01/17 17:50 Urine Nitrite Neg (Negative) 08/01/17 17:50 Urine Bilirubin Neg (Negative) 08/01/17 17:50 Urine Urobilinogen 4.0 mg/dL (<2.0) 08/01/17 17:50 Ur Leukocyte Esterase Neg (Negative) 08/01/17 17:50 Urine WBC (Auto) 1.0 /HPF (0.0-6.0) 08/01/17 17:50 Urine RBC (Auto) 1.0 /HPF (0.0-6.0) 08/01/17 17:50 U Epithel Cells (Auto) < 1.0 /HPF (0-13.0) 08/01/17 17:50 Urine Mucus 1+ /HPF 08/01/17 17:50 Salicylates < 0.3 mg/dL (2.8-20.0) L 08/01/17 17:00 Urine Opiates Screen Presumptive negative 08/01/17 17:50 Urine Methadone Screen Presumptive negative 08/01/17 17:50 Acetaminophen < 15.0 ug/mL (10.0-30.0) 08/02/17 18:31 Ur Barbiturates Screen Presumptive negative 08/01/17 17:50 Ur Phencyclidine Scrn Presumptive negative 08/01/17 17:50 Ur Amphetamines Screen Presumptive negative 08/01/17 17:50 U Benzodiazepines Scrn Presumptive negative 08/01/17 17:50 Urine Cocaine Screen Presumptive negative 08/01/17 17:50 U Marijuana (THC) Screen Presumptive negative 08/01/17 17:50 Drugs of Abuse Note Disclamer 08/01/17 17:50 Plasma/Serum Alcohol < 0.01 % (0-0.07) 08/01/17 17:00 - Imaging and Cardiology Venous US: image reviewed (superficial thromboses)
--- NOTE | 2017-08-08 14:03 | Progress Note ---
Subjective - Reason for Consult Consult date: 08/08/17 Reason for consult: Psychiatry Follow-up - Chief Complaint Chief complaint: "When will I be leaving" This is a 42-year-old female who apparently was trying to kill herself by carbon monoxide poisoning and taking a entire bottle of Flexeril pills. Today the patient is calm and cooperative during the assessment. She wanted to know when she will be transferred to a mental health facility. She stated reflecting about her actions prior to her admission to the hospital. She stated that she should have reached out for help. She denies SI/HI's and AVH's. Mental Status Exam - Vital signs Last Vital Signs Temp 99.0 F 08/08/17 08:30 Pulse 110 H 08/08/17 12:02 Resp 18 08/08/17 08:30 BP 136/90 08/08/17 12:02 Pulse Ox 100 08/08/17 08:30 - Exam Narrative exam: MSE: Appearance: calm, cooperative Behavior: regular eye contact Speech: regular rate and tone Mood: "okay" Affect: congruent to mood Thought Process: logical Thought Content: denies HI's and AVH's Motor Activity: lying in bed Cognition: A/O x3 Insight: fair Judgment: fair Assessment and Plan Impression: MD, Severe Type. Today the patient is calm and cooperative during the assessment. Patient intentionally tried to kill herself by CO poisoning and took an entire bottle of Flexeril pills. DDx: R/O Bipolar DO Recommendation/Plan: Her 1013 was extended today. The patient is pending placement at [facility]. Risk/Benefits of antidepressants discussed with patient. She prefer to talk with a therapist for treatment.
[2017-08-08] MEDS: LOVENOX SUB-Q SCH (22:47)
[2017-08-09] MEDS: NORVASC PO SCH (09:13)
[2017-08-09] MEDS: ASPIRIN PO SCH (09:13)
[2017-08-09] MEDS: PEPCID PO SCH ×2 (09:13→22:50)
--- NOTE | 2017-08-09 11:12 | Progress Note ---
Assessment and Plan Assessment and plan: Suicidal attempt with flexril overdose and chronic monoxide poisoning - Patient was intubated yesterday and currently extubated no issues - Patient is admitted to the floor on 1013 Superficial venous thrombosis - Aspirin, pain control, no anticoagulation is needed Major depression disorder - Psych consulted and said we'll transfer her to inpatient psych facility Hypertension - On amlodipine 5mg - will follow DVT prophylaxis - Lovenox Disposition - Patient is cleared medically for discharge and discharge is per psychiatry History Interval history: No new issues overnight. Hospitalist Physical - Constitutional Vitals: Temp Pulse Resp BP Pulse Ox 98.4 F 74 20 122/80 100 08/09/17 07:32 08/09/17 09:13 08/09/17 08:49 08/09/17 09:13 08/09/17 07:32 General appearance: Present: no acute distress, well-nourished - EENT Eyes: Present: PERRL, EOM intact ENT: hearing intact, clear oral mucosa, dentition normal - Neck Neck: Present: supple, normal ROM - Respiratory Respiratory effort: normal Respiratory: bilateral: CTA - Cardiovascular Rhythm: regular Heart Sounds: Present: S1 & S2. Absent: gallop, rub - Extremities Extremities: no ischemia, No edema, Full ROM - Abdominal General gastrointestinal: soft, non-tender, non-distended, normal bowel sounds - Integumentary Integumentary: Present: clear, warm, dry - Neurologic Neurologic: CNII-XII intact, moves all extremities Results - Labs CBC & Chem 7: 08/05/17 04:58 08/05/17 04:58 Labs: Laboratory Last Values WBC 4.8 K/mm3 (4.5-11.0) 08/05/17 04:58 RBC 3.90 M/mm3 (3.65-5.03) 08/05/17 04:58 Hgb 9.3 gm/dl (10.1-14.3) L 08/05/17 04:58 Hct 29.7 % (30.3-42.9) L 08/05/17 04:58 MCV 76 fl (79-97) L 08/05/17 04:58 MCH 24 pg (28-32) L 08/05/17 04:58 MCHC 31 % (30-34) 08/05/17 04:58 RDW 26.9 % (13.2-15.2) H 08/05/17 04:58 Plt Count 294 K/mm3 (140-440) 08/05/17 04:58 Lymph % (Auto) 27.6 % (13.4-35.0) 08/03/17 04:00 Bartholomew % (Auto) 8.8 % (0.0-7.3) H 08/03/17 04:00 Eos % (Auto) 4.2 % (0.0-4.3) 08/03/17 04:00 Baso % (Auto) 0.5 % (0.0-1.8) 08/03/17 04:00 Lymph # 1.0 K/mm3 (1.2-5.4) L 08/03/17 04:00 Bartholomew # 0.3 K/mm3 (0.0-0.8) 08/03/17 04:00 Eos # 0.1 K/mm3 (0.0-0.4) 08/03/17 04:00 Baso # 0.0 K/mm3 (0.0-0.1) 08/03/17 04:00 Add Manual Diff Complete 08/05/17 04:58 Total Counted 100 08/05/17 04:58 Seg Neutrophils % 58.9 % (40.0-70.0) 08/03/17 04:00 Seg Neuts % (Manual) 46.0 % (40.0-70.0) 08/05/17 04:58 Band Neutrophils % 1.0 % 08/05/17 04:58 Lymphocytes % (Manual) 40.0 % (13.4-35.0) H 08/05/17 04:58 Reactive Lymphs % (Man) 0 % 08/05/17 04:58 Monocytes % (Manual) 5.0 % (0.0-7.3) 08/05/17 04:58 Eosinophils % (Manual) 7.0 % (0.0-4.3) H 08/05/17 04:58 Basophils % (Manual) 0 % (0.0-1.8) 08/05/17 04:58 Metamyelocytes % 1.0 % 08/05/17 04:58 Myelocytes % 0 % 08/05/17 04:58 Promyelocytes % 0 % 08/05/17 04:58 Blast Cells % 0 % 08/05/17 04:58 Nucleated RBC % Not Reportable 08/05/17 04:58 Seg Neutrophils # 2.1 K/mm3 (1.8-7.7) 08/03/17 04:00 Seg Neutrophils # Man 2.2 K/mm3 (1.8-7.7) 08/05/17 04:58 Band Neutrophils # 0.0 K/mm3 08/05/17 04:58 Lymphocytes # (Manual) 1.9 K/mm3 (1.2-5.4) 08/05/17 04:58 Abs React Lymphs (Man) 0.0 K/mm3 08/05/17 04:58 Monocytes # (Manual) 0.2 K/mm3 (0.0-0.8) 08/05/17 04:58 Eosinophils # (Manual) 0.3 K/mm3 (0.0-0.4) 08/05/17 04:58 Basophils # (Manual) 0.0 K/mm3 (0.0-0.1) 08/05/17 04:58 Metamyelocytes # 0.0 K/mm3 08/05/17 04:58 Myelocytes # 0.0 K/mm3 08/05/17 04:58 Promyelocytes # 0.0 K/mm3 08/05/17 04:58 Blast Cells # 0.0 K/mm3 08/05/17 04:58 WBC Morphology Not Reportable 08/05/17 04:58 Hypersegmented Neuts Not Reportable 08/05/17 04:58 Hyposegmented Neuts Not Reportable 08/05/17 04:58 Hypogranular Neuts Not Reportable 08/05/17 04:58 Smudge Cells Not Reportable 08/05/17 04:58 Toxic Granulation Not Reportable 08/05/17 04:58 Toxic Vacuolation Not Reportable 08/05/17 04:58 Dohle Bodies Not Reportable 08/05/17 04:58 Pelger-Huet Anomaly Not Reportable 08/05/17 04:58 Aron Rods Not Reportable 08/05/17 04:58 Platelet Estimate Appears normal 08/05/17 04:58 Clumped Platelets Not Reportable 08/05/17 04:58 Plt Clumps, EDTA Not Reportable 08/05/17 04:58 Large Platelets Not Reportable 08/05/17 04:58 Giant Platelets Not Reportable 08/05/17 04:58 Platelet Satelliting Not Reportable 08/05/17 04:58 Plt Morphology Comment Not Reportable 08/05/17 04:58 RBC Morphology Not Reportable 08/05/17 04:58 Dimorphic RBCs Not Reportable 08/05/17 04:58 Polychromasia Not Reportable 08/05/17 04:58 Hypochromasia 1+ 08/05/17 04:58 Poikilocytosis Not Reportable 08/05/17 04:58 Anisocytosis 3+ 08/05/17 04:58 Microcytosis Not Reportable 08/05/17 04:58 Macrocytosis 1+ 08/05/17 04:58 Spherocytes Not Reportable 08/05/17 04:58 Pappenheimer Bodies Not Reportable 08/05/17 04:58 Sickle Cells Not Reportable 08/05/17 04:58 Target Cells Not Reportable 08/05/17 04:58 Tear Drop Cells Not Reportable 08/05/17 04:58 Ovalocytes Not Reportable 08/05/17 04:58 Helmet Cells Not Reportable 08/05/17 04:58 [place] Bodies Not Reportable 08/05/17 04:58 Belcher Rings Not Reportable 08/05/17 04:58 [place] Cells Not Reportable 08/05/17 04:58 Bite Cells Not Reportable 08/05/17 04:58 Crenated Cell Not Reportable 08/05/17 04:58 Elliptocytes Not Reportable 08/05/17 04:58 Acanthocytes (Spur) Not Reportable 08/05/17 04:58 Rouleaux Not Reportable 08/05/17 04:58 Hemoglobin C Crystals Not Reportable 08/05/17 04:58 Schistocytes Not Reportable 08/05/17 04:58 Malaria parasites Not Reportable 08/05/17 04:58 Azael Bodies Not Reportable 08/05/17 04:58 Hem Pathologist Commnt No 08/05/17 04:58 PT 14.4 Sec. (12.2-14.9) 08/02/17 18:31 INR 1.06 (0.87-1.13) 08/02/17 18:31 APTT 34.3 Sec. (24.2-36.6) 08/02/17 02:50 POC ABG pH 7.378 (7.35-7.45) 08/01/17 19:19 POC ABG pCO2 46.5 (35-45) H 08/01/17 19:19 POC ABG pO2 480 (80-105) H 08/01/17 19:19 POC ABG HCO3 27.4 08/01/17 19:19 POC ABG Total CO2 29 08/01/17 19:19 POC ABG O2 Sat 100 08/01/17 19:19 POC ABG Base Excess 2 08/01/17 19:19 Carboxyhemoglobin 3.3 08/01/17 21:52 FiO2 98 % 08/01/17 19:19 Sodium 141 mmol/L (137-145) 08/05/17 04:58 Potassium 4.5 mmol/L (3.6-5.0) 08/05/17 04:58 Chloride 104.5 mmol/L (98-107) 08/05/17 04:58 Carbon Dioxide 25 mmol/L (22-30) 08/05/17 04:58 Anion Gap 16 mmol/L 08/05/17 04:58 BUN 13 mg/dL (7-17) 08/05/17 04:58 Creatinine 0.6 mg/dL (0.7-1.2) L 08/05/17 04:58 Estimated GFR > 60 ml/min 08/05/17 04:58 BUN/Creatinine Ratio 22 % 08/05/17 04:58 Glucose 91 mg/dL (65-100) 08/05/17 04:58 Calcium 8.2 mg/dL (8.4-10.2) L 08/05/17 04:58 Total Bilirubin 0.30 mg/dL (0.1-1.2) 08/04/17 05:57 Direct Bilirubin < 0.2 mg/dL (0-0.2) 08/02/17 18:31 Indirect Bilirubin 0.6 mg/dL 08/02/17 18:31 AST 8 units/L (5-40) 08/04/17 05:57 ALT 5 units/L (7-56) L 08/04/17 05:57 Alkaline Phosphatase 56 units/L (35-129) 08/04/17 05:57 Total Creatine Kinase 174 units/L (30-135) H 08/01/17 21:52 Total Protein 6.2 g/dL (6.3-8.2) L 08/04/17 05:57 Albumin 3.2 g/dL (3.9-5) L 08/04/17 05:57 Albumin/Globulin Ratio 1.1 % 08/04/17 05:57 HCG, Qual Negative (Negative) 08/01/17 Unknown Urine Color Yellow (Yellow) 08/01/17 17:50 Urine Turbidity Clear (Clear) 08/01/17 17:50 Urine pH 6.0 (5.0-7.0) 08/01/17 17:50 Ur Specific [place] 1.014 (1.003-1.030) 08/01/17 17:50 Urine Protein <15 mg/dl mg/dL (Negative) 08/01/17 17:50 Urine Glucose (UA) Neg mg/dL (Negative) 08/01/17 17:50 Urine Ketones Tr mg/dL (Negative) 08/01/17 17:50 Urine Blood Neg (Negative) 08/01/17 17:50 Urine Nitrite Neg (Negative) 08/01/17 17:50 Urine Bilirubin Neg (Negative) 08/01/17 17:50 Urine Urobilinogen 4.0 mg/dL (<2.0) 08/01/17 17:50 Ur Leukocyte Esterase Neg (Negative) 08/01/17 17:50 Urine WBC (Auto) 1.0 /HPF (0.0-6.0) 08/01/17 17:50 Urine RBC (Auto) 1.0 /HPF (0.0-6.0) 08/01/17 17:50 U Epithel Cells (Auto) < 1.0 /HPF (0-13.0) 08/01/17 17:50 Urine Mucus 1+ /HPF 08/01/17 17:50 Salicylates < 0.3 mg/dL (2.8-20.0) L 08/01/17 17:00 Urine Opiates Screen Presumptive negative 08/01/17 17:50 Urine Methadone Screen Presumptive negative 08/01/17 17:50 Acetaminophen < 15.0 ug/mL (10.0-30.0) 08/02/17 18:31 Ur Barbiturates Screen Presumptive negative 08/01/17 17:50 Ur Phencyclidine Scrn Presumptive negative 08/01/17 17:50 Ur Amphetamines Screen Presumptive negative 08/01/17 17:50 U Benzodiazepines Scrn Presumptive negative 08/01/17 17:50 Urine Cocaine Screen Presumptive negative 08/01/17 17:50 U Marijuana (THC) Screen Presumptive negative 08/01/17 17:50 Drugs of Abuse Note Disclamer 08/01/17 17:50 Plasma/Serum Alcohol < 0.01 % (0-0.07) 08/01/17 17:00
--- NOTE | 2017-08-09 13:56 | Progress Note ---
Subjective - Reason for Consult Consult date: 08/09/17 Reason for consult: Psychiatry Follow-up - Chief Complaint Chief complaint: "Christa" This is a 42-year-old female who apparently was trying to kill herself by carbon monoxide poisoning and taking a entire bottle of Flexeril pills. Today the patient is calm and cooperative during the assessment. She stated that she want all "this" to be over soon. She denies SI/HI's and AVH's. Mental Status Exam - Vital signs Last Vital Signs Temp 98.4 F 08/09/17 07:32 Pulse 74 08/09/17 09:13 Resp 20 08/09/17 08:49 BP 122/80 08/09/17 09:13 Pulse Ox 100 08/09/17 07:32 - Exam Narrative exam: MSE: Appearance: calm, cooperative Behavior: regular eye contact Speech: regular rate and tone Mood: "okay" Affect: congruent to mood Thought Process: logical Thought Content: denies HI's and AVH's Motor Activity: lying in bed Cognition: A/O x3 Insight: fair Judgment: fair Assessment and Plan Impression: MD, Severe Type. Today the patient is calm and cooperative during the assessment. Patient intentionally tried to kill herself by CO poisoning and took an entire bottle of Flexeril pills. DDx: R/O Bipolar DO Recommendation/Plan: Continue 1013 with pending placement to [facility]. Risk/ Benefits of antidepressants discussed with patient. She prefer to talk with a therapist for treatment.
[2017-08-09] MEDS: LOVENOX SUB-Q SCH (22:50)
[2017-08-10] MEDS: ASPIRIN PO SCH (10:14)
[2017-08-10] MEDS: PEPCID PO SCH ×2 (10:14→22:27)
[2017-08-10] MEDS: NORVASC PO SCH (10:15)
--- NOTE | 2017-08-10 10:28 | Vascular Lab Report ---
RIGHT UPPER EXTREMITY VENOUS DUPLEX: REASON FOR EXAM: Pain and swelling of the right upper extremity COMMENTS ON THE RIGHT: Acute superficial venous thrombosis is seen at the cephalic vein near the elbow in the upper arm. The remaining veins visualized are freely compressible without evidence of internal echogenicity. Spontaneous and phasic flow is present proximally. COMMENTS ON THE LEFT: A limited study of the jugular and subclavian veins shows no evidence of thrombus. IMPRESSION: Acute, superficial venous thrombosis in the right arm cephalic vein at the elbow. No evidence of acute deep venous thrombosis in the right upper extremity.
[2017-08-10] MEDS: LOVENOX SUB-Q SCH (22:27)
--- NOTE | 2017-08-11 09:31 | Discharge Summary ---
Providers - Providers Date of Admission: 08/01/17 18:45 Date of discharge: 08/11/17 Attending physician: DELONTE RICHARD 08/02/17 Consult to Case Management [CONS] Routine Services Needed at Discharge: Home Health Services [employer] Notified:: ss 08/03/17 07:34 Consult to Mental Health [CONS] Urgent Reason For Exam: Sucidal attempt Place consult to:: Psychiatry Notified:: no Primary care physician: OUTPATIENT CASE MANAGER Hospitalization Reason for admission: SI Condition: Stable Hospital course: This is a 42-year-old female who apparently was trying to kill herself by carbon monoxide poisoning and taking a entire bottle of Flexeril pills. The pt. was placed under 1013 and seen by Psych in consultation. Pt. dx with major depressive d/o and underwent eval for bipolar d/o. Psych recommended to continue 1013 with pending placement to [facility]. Discharge time 32 min Disposition: [id number] PSY HOSP/PSY UNIT Time spent for discharge: 32 - Discharge Diagnoses (1) Suicidal ideation Status: Acute (2) Suicidal behavior Status: Acute (3) Overdose Status: Acute Qualifiers: Encounter type: initial encounter Injury intent: intentional self-harm Qualified Code(s): T50.902A - Poisoning by unspecified drugs, medicaments and biological substances, intentional self-harm, initial encounter (4) Depression Status: Chronic Qualifiers: Major depression episode severity: severe (5) Asthma Status: Inactive Core Measure Documentation - Palliative Care Palliative Care/ Comfort Measures: Not Applicable - Core Measures Any of the following diagnoses?: none Exam - Constitutional Vitals: Temp Pulse Resp BP Pulse Ox 98.5 F 88 18 114/76 100 08/11/17 08:14 08/11/17 08:14 08/11/17 08:14 08/11/17 08:14 08/11/17 08:14 General appearance: Present: no acute distress, well-nourished - EENT Eyes: Present: PERRL ENT: hearing intact, clear oral mucosa - Neck Neck: Present: supple, normal ROM - Respiratory Respiratory effort: normal Respiratory: bilateral: CTA - Cardiovascular Heart Sounds: Present: S1 & S2. Absent: rub, click - Extremities Extremities: pulses symmetrical, No edema Peripheral Pulses: within normal limits - Abdominal General gastrointestinal: Present: soft, non-tender, non-distended, normal bowel sounds Female genitourinary: Present: normal - Integumentary Integumentary: Present: clear, warm, dry - Musculoskeletal Musculoskeletal: gait normal, strength equal bilaterally - Psychiatric Psychiatric: appropriate mood/affect, intact judgment & insight - Neurologic Neurologic: CNII-XII intact, moves all extremities Plan Activity: no restrictions Weight Bearing Status: Full Weight Bearing Follow up with: PRIMARY CARE, [Primary Care Provider] - 3-5 Days
[2017-08-11] MEDS: PEPCID PO SCH ×2 (10:45→22:28)
[2017-08-11] MEDS: ASPIRIN PO SCH (11:44)
[2017-08-11] MEDS: NORVASC PO SCH (11:45)
--- NOTE | 2017-08-11 12:59 | Progress Note ---
Subjective - Reason for Consult Consult date: 08/11/17 Reason for consult: Psychiatry Follow-up - Chief Complaint Chief complaint: "I should have made a better decision" This is a 42-year-old female who apparently was trying to kill herself by carbon monoxide poisoning and taking a entire bottle of Flexeril pills. Today the patient is calm and cooperative during the assessment. She stated that she should have made a better choice other than trying to kill herself prior to her admission. She stated this experience has really impacted her. She denies SI/HI' s and AVH's. Mental Status Exam - Vital signs Last Vital Signs Temp 98.5 F 08/11/17 08:14 Pulse 88 08/11/17 08:14 Resp 18 08/11/17 08:14 BP 114/76 08/11/17 08:14 Pulse Ox 100 08/11/17 08:14 - Exam Narrative exam: MSE: Appearance: calm, cooperative Behavior: regular eye contact Speech: regular rate and tone Mood: "okay" Affect: congruent to mood Thought Process: logical Thought Content: denies HI's and AVH's Motor Activity: lying in bed Cognition: A/O x3 Insight: fair Judgment: fair Assessment and Plan Impression: MD, Severe Type. Today the patient is calm and cooperative during the assessment. Patient intentionally tried to kill herself by CO poisoning and took an entire bottle of Flexeril pills. DDx: R/O Bipolar DO Recommendation/Plan: Continue 1013 with placement to [facility] pending transport time. Risk/Benefits of antidepressants discussed with patient. She prefer to talk with a therapist for treatment.
[2017-08-11] MEDS: LOVENOX SUB-Q SCH (22:28)
[2017-08-12 08:12] VITALS: BP 115/77
[2017-08-12] MEDS: NORVASC PO SCH (09:39)
[2017-08-12] MEDS: PEPCID PO SCH (09:39)
[2017-08-12] MEDS: ASPIRIN PO SCH (09:39)
--- NOTE | 2017-08-12 09:42 | Progress Note ---
Assessment and Plan Suicidal attempt with flexril overdose and chronic monoxide poisoning - Patient was intubated yesterday and currently extubated no issues - Patient is admitted to the floor on 1013 Superficial venous thrombosis - Aspirin, pain control, no anticoagulation is needed Major depression disorder - Psych consulted and said we'll transfer her to inpatient psych facility Hypertension - On amlodipine 5mg - will follow DVT prophylaxis - Lovenox Disposition - Patient is cleared medically for discharge and discharge is per psychiatry - Patient Problems (1) Suicidal ideation Current Visit: Yes Status: Acute (2) Suicidal behavior Current Visit: Yes Status: Acute (3) Overdose Current Visit: Yes Status: Acute Qualifiers: Encounter type: initial encounter Injury intent: intentional self-harm Qualified Code(s): T50.902A - Poisoning by unspecified drugs, medicaments and biological substances, intentional self-harm, initial encounter (4) Depression Current Visit: Yes Status: Chronic Qualifiers: Major depression episode severity: severe (5) Asthma Current Visit: Yes Status: Inactive Subjective Date of service: 08/11/17 Principal diagnosis: Flexeril overdose Interval history: No new issues overnight. Objective - Constitutional Vitals: Vital Signs - 12hr 08/11/17 08/12/17 21:56 07:56 Temperature 97.5 F L 98.8 F Pulse Rate 86 88 Respiratory 20 20 Rate Blood Pressure 123/70 115/77 O2 Sat by Pulse 100 100 Oximetry General appearance: Present: no acute distress, well-nourished - EENT Eyes: PERRL, EOM intact ENT: hearing intact, clear oral mucosa Ears: bilateral: normal - Neck Neck: supple, normal ROM - Respiratory Respiratory effort: normal Respiratory: bilateral: CTA - Breasts Breasts: normal - Cardiovascular Rhythm: regular Heart Sounds: Present: S1 & S2. Absent: gallop, rub Extremities: pulses intact, No edema, normal color, Full ROM - Gastrointestinal General gastrointestinal: Present: soft, non-tender, non-distended, normal bowel sounds - Genitourinary Female genitourinary: normal - Integumentary Integumentary: clear, warm, dry - Musculoskeletal Musculoskeletal: 1, strength equal bilaterally - Neurologic Neurologic: moves all extremities - Psychiatric Psychiatric: memory intact, appropriate mood/affect, intact judgment & insight - Labs CBC & Chem 7: 08/05/17 04:58 08/05/17 04:58
--- NOTE | 2017-08-12 12:23 | Progress Note ---
Subjective - Reason for Consult Consult date: 08/12/17 Reason for consult: Psychiatry Follow-up - Chief Complaint Chief complaint: "Christa" This is a 42-year-old female who apparently was trying to kill herself by carbon monoxide poisoning and taking a entire bottle of Flexeril pills. Today the patient is calm and cooperative during the assessment. She will be transferred today to [facility]. Mental Status Exam - Vital signs Last Vital Signs Temp 98.8 F 08/12/17 07:56 Pulse 88 08/12/17 07:56 Resp 20 08/12/17 07:56 BP 115/77 08/12/17 07:56 Pulse Ox 100 08/12/17 07:56 - Exam Narrative exam: MSE: Appearance: calm, cooperative Behavior: regular eye contact Speech: regular rate and tone Mood: "okay" Affect: congruent to mood Thought Process: logical Thought Content: denies SI/HI's and AVH's Motor Activity: lying in bed Cognition: A/O x3 Insight: fair Judgment: fair Assessment and Plan Impression: MD, Severe Type. Today the patient is calm and cooperative during the assessment. Patient intentionally tried to kill herself by CO poisoning and took an entire bottle of Flexeril pills. DDx: R/O Bipolar DO Recommendation/Plan: Continue 1013 with placement to [facility] today.
== END 2017-08-12 11:35 | DRG 918 ==
LOC: ED 16:40 → CC1 18:45 → 3A 08-03 08:10
PROVIDERS: ADMIT Internal Medicine; ATTEND Hospitalist
PROC: 4A033R1 Measurement of Arterial Saturation, Peripheral, Percutaneous Approach (ICD-10-PCS; principal; 2017-08-01)
DX: T58.92XA Toxic effect of carbon monoxide from unspecified source, intentional self-harm, initial encounter (principal); R45.851 Suicidal ideations; F32.9 Major depressive disorder, single episode, unspecified; J45.909 Unspecified asthma, uncomplicated; T48.1X2A Poisoning by skeletal muscle relaxants [neuromuscular blocking agents], intentional self-harm, initial encounter; I10 Essential (primary) hypertension; Y92.89 Other specified places as the place of occurrence of the external cause
CPT/HCPCS: 36415; 74018; 80048; 80053; 80074; 80307; 80320; 81001; 82374; 82375; 82550; 82803; 84450; 84460; 84703; 85007; 85025; 85610; 85730; 93005; 93010; G0480; J0132; J0696; J1650; J7042; J7060; J7070